=== PATIENT | female | born 1950 ===

== ENCOUNTER 2024-10-05 09:49 | Outpatient (AMB) | payer MEDICARE, MEDICAID, SELFPAY ==
[2024-10-05 09:54] VITALS: BP 118/56; PULSE 77; RESP 16; O2SAT 99; BMI 29.2
--- NOTE | 2024-10-05 09:54 | A.OFFVIS_ITS ---
Vital Signs 10/05/24 09:54 Height 5 ft 6 in Weight 181 lb BMI 29.2 BP 118/56 L Blood Pressure Location Lt brachial Position Sitting Respiration 16 Pulse 77 Pulse Source Pulse Oximeter Pulse Oximetry (%) 99 Oxygen Delivery Method Room Air Intake Visit Reasons: Neuropathy Senior Clinical Study Manager Required: No Allergies Penicillins Allergy (Severe, Verified 10/05/24 09:55) n/v, rectal bleeding Medication List - Last Reconciled 10/05/24 by Bhavana Batres LPN insulin glargine (Basaglar KwikPen U-100 Insulin) units subcut HPI HPI Neuropathy: Details: History of Present Illness The patient is a 74-year-old female presenting with foot pain due to diabetic neuropathy. The pain began in March 2024 and is described as stiffness, pins and needles, and numbness, with an intensity of 7 on a scale of 10. The pain is particularly bothersome at night, affecting her ability to sleep and engage in daily activities, although it tends to improve during the day. The patient has a history of diabetes mellitus, diagnosed one to two years prior. She is currently managing her diabetes with insulin therapy, although specific details about her glycemic control were not discussed. Pain Description - Onset: March 2024 - Quality: Stiffness, pins and needles, numbness - Intensity: 7/10 - Timing: More bothersome at night - Impact: Affects sleep and daily activities Physical Exam Neurological: Abnormal sensation upon touching toes, described as funny feeling. There's loss of hair and shiny skin appearance on her feet. Results Pain Management - Affect: Pain intensity affects sleep and daily activities, particularly at night. - Analgesia: No current analgesia aside from considering pregabalin 75 mg at night. - Adverse Effects: None reported as pregabalin not yet initiated. - Activities of Daily Living: Impacted due to nighttime pain intensity. - Aberrant Drug Related Behaviors: None reported. [facility] Medical History (Updated 10/06/24 @ 10:32 by Abisai Munroe MD) Vitamin D deficiency Varicose veins of lower extremity Type 2 diabetes mellitus with hyperglycemia Plantar fasciitis Osteoarthritis of both knees Lumbar disc disease Arthritis of right glenohumeral joint Diverticulosis Colon polyp Physical Exam Vital Signs: Last Vital Signs Pulse 77 10/05/24 09:54 Resp 16 10/05/24 09:54 BP 118/56 L 10/05/24 09:54 Pulse Ox 99 10/05/24 09:54 Oxygen Delivery Method Room Air 10/05/24 09:54 BMI result Body Mass Index 29.2 Assessment & Plan Assessment & Plan (1) Peripheral neuritis of both feet: Code(s): G57.93 - Unspecified mononeuropathy of bilateral lower limbs Category: Medical Plan Plan - Initiate pregabalin 75 mg at night for neuropathic pain management. - Perform nerve conduction study to evaluate neuropathy and exclude lumbar radiculopathy. - Continue monitoring and adapt treatment strategies based on study outcomes and symptom progression. - Follow up 1 month. Patient was informed and verbally consented to the use of an ambient scribe for clinic note documentation during this visit. Discussion Notes I discussed with the patient the potential benefits of pregabalin for alleviating her neuropathic pain and its potential to improve her sleep disturbances. We considered the nerve conduction study as an important diagnostic tool to determine the causes of her symptoms, emphasizing the need to exclude lumbar radiculopathy. I explained how this determination would guide subsequent treatment decisions and assured her that continuous assessment and adaptation of her management plan would be prioritized based on evolving diagnostic findings. Patient Instructions - Begin pregabalin 75 mg at bedtime as discussed. - Expect a nerve conduction study as planned. - Monitor symptom changes, particularly improved sleep or reduced pain, and report any adverse effects. - Follow guidance given for managing diabetes unless otherwise instructed. Orders: Orders NE electromyogram (EMG) Today G57.93 - Unspecified mononeuropathy of bilateral lower limbs NE nerve conduction velocity Today G57.93 - Unspecified mononeuropathy of bilateral lower limbs Medications: New pregabalin 75 mg PO DAILY 30 caps 0RF Coding Level of Care Code New Pt Level 4 (58963) Diagnoses Peripheral neuritis of both feet G57.93
--- OUTSIDE RECORDS SUMMARY | 2024-10-05 10:24 | XMS_ITS | Clinical Summary ---
Author Organization [facility] Address [address] [place] [address] Phone Care Team Providers Care Director Geophysical Laboratory Name Role Phone Boni Castaneda MD Primary Care Provider [phone] Allergies Active Allergy Reactions Criticality Noted Date Comments Penicillin G Anaphylaxis,Nausea And Vomiting High Medications FREESTYLE LANCETS MISC 1 Device by Does not apply route 2 times daily. Use to test blood sugars twice daily DX: E11.65 07/22/19 24 Active pen needle, diabetic (BD Ultra-Fine Short Pen Needle) 31 gauge x 5/16 needle Use with insulin pen once daily 07/22/19 24 Active lidocaine (LIDODERM) 5 % patchIndications:D iabetic mononeuropathy simplex ([facility] V24, [facility] V28) Apply 2 patches topically 1 (one) time each day. Remove & discard patch within 12 hours or as directed by MD. 30 each 5 07/20/19 25 025 Active blood sugar diagnostic (FreeStyle Lite Strips) test strip USE TO TEST BLOOD SUGARS TWICE DAILY DX: E11.65 100 strip 5 09/06/19 25 Active pravastatin (PRAVACHOL) 10 mg tablet TAKE 1 TABLET BY MOUTH EVERY DAY 90 tablet 1 09/09/19 25 Active alcohol swabs (Alcohol Prep Pads) pads, medicated 1 Each by Does not apply route three times daily. 300 each 3 09/21/19 25 Active blood-glucose meter kit Use to test blood sugars twice daily. 1 each 09/21/19 25 Active insulin glargine,hum.rec.a nlog (Basaglar KwikPen U-100 Insulin) 100 unit/mL (3 mL) injection pen INJECT 36 UNITS INTO SKIN AT BEDTIME, INCR 2 UNITS EVERY 3 DAYS IF FASTING SUGARS >130 MAX 60 UNITS 15 mL 12 09/21/19 25 Active alcohol antiseptic pads (ALCOHOL PREP PADS TOP) 1 Each by Does not apply route daily. 07/22/19 24 025 Discontin ued(Reord er) blood-glucose meter kit Use to test blood sugars twice dialy DX: E11.65 02/08/20 21 025 Discontin ued(Reord er) insulin glargine,hum.rec.a nlog (Basaglar KwikPen U-100 Insulin) 100 unit/mL (3 mL) injection pen INJECT 26 UNITS INTO SKIN AT BEDTIME, INCR 2 UNITS EVERY 3 DAYS IF FASTING SUGARS >130 MAX 30 UNITS 15 mL 12 08/27/19 25 025 Discontin ued(Reord er) Active Problems Problem Noted Date Diagnosed Date Vitamin D deficiency 05/21/2023 Colon polyp 04/08/2021 Diverticulosis 04/08/2021 Overview (12/11/2023): Mild per 2019 colonoscopy report. Glenohumeral arthritis, right 04/08/2021 Lumbar disc disease 04/08/2021 Osteoarthritis of both knees 03/25/2021 Overview (12/11/2023): Chronic left knee pain. Plantar fasciitis 03/25/2021 Varicose veins of lower extremity 03/25/2021 Type 2 diabetes mellitus wit h hyperglycemia, without long-term current use of insulin ([facility] V24, [facility] V28) 02/05/2021 Encounters Date Type Department Care Team Description 09/28/2024 Telephone Internal Medicine - [facility] [address] [place], [place] [address], [place] [phone] Boni Castaneda MD 09/28/2024 Telephone Internal Medicine - [facility] [address] [place], [place] [phone] Boni Castaneda MD Referral (INTERNAL REFERRAL ) 09/20/2024 9:00 AM EDT Office Visit Endocrinology [address] [phone] Rachel Whitney PA Type 2 diabetes mellitus with hyperglycemia, without long-term current use of insulin ([facility] V24, [facility] V28) (Primary Dx) 08/26/2024 Telephone Endocrinology [address] [phone] Michelle Lowry PA Medication Problem 08/05/2024 9:00 AM EDT - 08/05/2024 11:59 PM EDT [facility] [address] [phone] Breast asymmetry Discharge Disposition: Home or Self Care 07/20/2024 9:00 AM EDT Office Visit Internal Medicine - [address] [phone] Boni Castaneda MD Encounter for annual physical exam (Primary Dx); Type 2 diabetes mellitus with hyperglycemia, without long-term current use of insulin ([facility] V24, [facility] V28); Encounter for osteoporosis screening in asymptomatic postmenopausal patient 07/19/2024 10:00 AM EDT Office Visit Orthopedic Surgery - [place] [address] [place] [phone] Darion Jimenez DPM Diabetic mononeuropathy simplex ([facility] V24, [facility] V28) (Primary Dx); Dermatophytosis of nail; Pain in toe of right foot; Pain in toe of left foot; Primary osteoarthritis of both feet from Last 3 Months Immunizations Name Administration Dates Next Due Pfizer SARS-CoV-2 COVID-19, mRNA, LNP-S, preservative free 06/10/2021 Surgical History Surgery Date Site/Laterality Comments OTHER SURGICAL HISTORY 03/06/2020 PROCEDURE: IN TOTAL ABDOMINAL HYSTERECT W/WO RMVL TUBE OVARY TUBAL LIGATION PROCEDURE: HISTORICAL TUBAL LIGATION CHOLECYSTECTOMY 06/11/2016 PROCEDURE: HISTORICAL CHOLECYSTECTOMY; COMMENT: lap juanita COLONOSCOPY 2019 PROCEDURE: HISTORICAL COLONOSCOPY; COMMENT: polyp, mild diverticulosis, repeat in 2023. Medical History Medical History Date Comments Type 2 diabetes mellitus wit h hyperglycemia, without long-term current use of insulin ([facility] V24, [facility] V28) 02/05/2021 DX:Type 2 diabetes mellitus with hyperglycemia, without long-term current use of insulin ([facility]) Osteoarthritis of both knees 03/25/2021 DX: Osteoarthritis of both knees; COMMENT: Chronic left knee pain. Plantar fasciitis 03/25/2021 DX:Plantar fas ciitis Varicose veins of lower extremity 03/25/2021 DX:Varicose veins of lower extremity Colon polyp 04/08/2021 DX:Colon polyp Diverticulosis 04/08/2021 DX:Diverticulosi s; COMMENT: Mild per 2019 colonoscopy report. Glenohumeral arthritis, right 04/08/2021 DX :Glenohumeral arthritis, right Lumbar disc disease 04/08/2021 DX:Lumbar di sc disease History of endometrial cancer 04/08/2021 DX :History of endometrial cancer; COMMENT: s/p hyst Family History Medical History Relation Name Comments Diabetes Brother 1 No Known Problems Daughter 1 No Known Problems Daughter 2 No Known Problems Father Lung cancer Maternal Grandmother Breast cancer Mother Diabetes Diabetes Mother No Known Problems Sister 1 Diabetes Sister 2 Relation Name Status Comments Brother 1 Brother 2 Daughter 1 Daughter 2 Alive Father Maternal Grandmother Mother Sister 1 Sister 2 Alive Social History Tobacco Use Types Packs/Day Years Used Date Smoking Tobacco: Never Smokeless Tobacco: Never Tobacco Cessation:Counseling Given: Not Answered Alcohol Use Standard Drinks/Week Comments Never 0 (1 standard drink = 0.6 oz pur e alcohol) Comments No Sex and Gender Information Value Date Recorded Sex Assigned at Not on file Legal Sex Female 8:37 PM EST Gender Identity Not on file Sexual Orientation Not on file Obstetrics History Para Term AB IAB SAB Ectopic Multiple Livin g Live Births 2 Last Filed Vital Signs Vital Sign Reading Time Taken Comments Blood Pressure 122/72 09/20/2024 9:16 AM EDT C Pulse 65 09/20/2024 9:16 AM EDT Temperature 36.1 C (96.9 F) 09/20/2024 9:16 AM EDT Respiratory Rate - - Oxygen Saturation - - Inhaled Oxygen Concentration - - Weight 83.3 kg (183 lb 9.6 oz) 09/20/2024 9:16 A M EDT Height 167.6 cm (5' 6 ) 09/20/2024 9:16 AM EDT Body Mass Index 29.63 09/20/2024 9:16 AM EDT Plan of Treatment Upcoming Encounters Date Type Department Care Team (Late st Contact Info) Description 10/05/2024 3:45 PM EDT Office Visit Internal Medicine - [facility] [address] [place] [phone] Faith Means, CHRIS [address] [place] [address] 10/18/2024 9:15 AM EDT Office Visit Orthopedic Surgery - [place] [address] [phone] Darion Jimenez DPM [address] [address] 11/02/2024 9:00 AM EDT Office Visit Endocrinology - [address] [phone] Rachel Whitney PA [address] [place] [address] 02/10/2025 10:00 AM EST Appointment [facility] [address] [place] [phone] Health Maintenance Due Date Last Done Comments Medicare Annual Wellness Visit 02/22/2022 Osteoporosis Screening (Bone Density Screening) 02/22/2022 Depression Screening 03/23/2024 Diabetes: Annual Retina Eye Exam 09/14/2024 09/15/2023 Influenza Vaccine (#1) 2024 Diabetes: Blood Sugar Control Test (HGBA1C) 03/02/2025 08/31/2024, 03/07/2024, 08/26/2023, Additional history exists Diabetes: Annual Foot Exam 07/19/2025 07/19/2024 Falls Risk Assessment 07/20/2025 07/20/2024, 024 Social Influencers of Health Screening 07/20/2025 07/20/2024 Diabetes: Annual Urine Albumin-Creatinine Ratio (uACR) 08/31/2025 08/31/2024, 11/05/2022 Diabetes: Annual GFR (Glomerular Filtration Rate) 08/31/2025 08/31/2024, 03/07/2024, 11/05/2022 Breast Cancer Screening 08/05/2026 08/06/19, 01/20/2024, 01/14/2023, Additional history exists Cholesterol Screening (Lipid Panel) 03/07/2029 03/07/2024, 11/05/2022 Colorectal Cancer Screening: Colonoscopy 06/08/2031 06/07/2021 Hepatitis C Screening Completed 02/05/2021 COVID-19 Vaccine Discontinued 06/10/2021 DTaP,Tdap,and Td Vaccines Discontinued HIB Vaccines Aged Out No longer eligi ble based on patient's age to complete this topic HPV Vaccines Aged Out No longer eligi ble based on patient's age to complete this topic Hepatitis A Vaccines Aged Out No long er eligible based on patient's age to complete this topic Hepatitis B Vaccines Aged Out No long er eligible based on patient's age to complete this topic IPV Vaccines Aged Out No longer eligi ble based on patient's age to complete this topic MMR Vaccines Aged Out No longer eligi ble based on patient's age to complete this topic Meningococcal ACWY Vaccine Aged Out N o longer eligible based on patient's age to complete this topic Meningococcal B Vaccine Aged Out No l onger eligible based on patient's age to complete this topic Pneumococcal Vaccine: 50+ Years Discontinued RSV Immunization Adult Patients Discontinued RSV Immunization Patients Under 20 months Aged Out No longer eligible based on patient's age to complete this topic Varicella Vaccines Aged Out No longer eligible based on patient's age to complete this topic Zoster Vaccines Discontinued Procedures Procedure Name Priority Date/Time Associated Diagnosis Comments POC GLUCOSE Routine 09/20/2024 9:13 AM EDT Type 2 diabetes mellitus with hyperglycemia, without long-term current use of insulin ([facility] V24, [facility] V28) HEMOGLOBIN A1C Routine 08/31/2024 9:20 AM EDT Type 2 diabetes mellitus with hyperglycemia, without long-term current use of insulin ([facility] V24, [facility] V28) MICROALBUMIN CREATININE URINE RATIO Routine 08/31/2024 9:20 AM EDT Type 2 diabetes mellitus with hyperglycemia, without long-term current use of insulin ([facility] V24, [facility] V28) COMPREHENSIVE METABOLIC PANEL Routine 08/31/2024 9:20 AM EDT Type 2 diabetes mellitus with hyperglycemia, without long-term current use of insulin ([facility] V24, [facility] V28) MG MAMMO DIGITAL DIAGNOSTIC W RODRIGO RIGHT Routine 08/05/2024 9:38 AM EDT Breast asymmetry LIPID PANEL WITH REFLEX TO DIRECT LDL Routine 03/07/2024 11:00 AM EST Mixed hyperlipidemia DIABETES EYE EXAM Routine 09/15/2023 FALLS RISK ASSESSMENT Routine 07/22/2023 COLONOSCOPY Routine 06/07/2021 HEPATITIS C SCREENING Routine 02/05/2021 from Last 3 Months or Most Recently Relevant to Health Maintenance Results * POC glucose manually resulted (09/20/2024 9:13 AM EDT) Glucose POC 335 mg/dL Comment:Fasting Blood Capillary blood specimen / Unknown 09/20/2024 9:13 AM EDT us Rachel FLORES POINT OF CARE TEST ENTER/ED IT ORDERABLES Final Result * Microalbumin creatinine urine ratio (08/31/2024 9:20 AM EDT) Creatinine, Urine 96.0 mg/dL LAB CHEMISTRY METHOD 08/31/2024 3:26 PM EDT [facility] Microalb, Ur 13.8 0.0 - 29.0 mg/L LAB CHEMISTRY METHOD 08/31/2024 3:26 PM EDT [facility] Microalb/Creat Ratio 14 <30 mg/g creat LAB CHEMISTRY METHOD 08/31/2024 3:26 PM EDT [facility] Urine Urine specimen obtained by clean catch procedure / Unknown Non-blood Collection / Unknown 08/31/2024 9:20 AM EDT 08/31/2024 9:20 AM EDT us Michelle FLORES LAB URINE ORDERABLES Final Resul t Performing Organization Address [facility]/ZIP Co de Phone Number [facility] [address] [place] [address], [place] [phone] * (ABNORMAL) Hemoglobin A1c (08/31/2024 9:20 AM EDT) Hemoglobin A1C 12.9(H) <6.5 % LAB CHEMISTRY METHOD 08/31/2024 8:49 PM EDT [facility] Mean Bld Glu Estim. 324 mg/dL LAB CHEMISTRY METHOD 08/31/2024 8:49 PM EDT [facility] Blood Venous blood specimen / Unknown Venipuncture / Unknown 08/31/2024 9:20 AM EDT 08/31/2024 9:20 AM EDT us Michelle FLORES LAB BLOOD ORDERABLES Final Resul t [facility] [address] [place] [address], [place] [phone] * (ABNORMAL) Comprehensive metabolic panel (08/31/2024 9:20 AM EDT) Sodium 137 133 - 145 mmol/L LAB CHEMISTRY METHOD 08/31/2024 1:59 PM EDT [facility] Potassium 4.1 3.5 - 5.5 mmol/L LAB CHEMISTRY METHOD 08/31/2024 1:59 PM [facility] Chloride 103 96 - 110 mmol/L LAB CHEMISTRY METHOD 08/31/2024 1:59 PM [facility] CO2 30 21 - 32 mmol/L LAB CHEMISTRY METHOD 08/31/2024 1:59 PM [facility] Anion Gap 4 3 - 11 LAB CHEMISTRY METHOD 08/31/2024 1:59 PM [facility] Glucose 328(H) 70 - 100 mg/dL LAB CHEMISTRY METHOD 08/31/2024 1:59 PM [facility] BUN 7 5 - 25 mg/dL LAB CHEMISTRY METHOD 08/31/2024 1:59 PM [facility] Creatinine 0.52 0.50 - 1.10 mg/dL LAB CHEMISTRY METHOD 08/31/2024 1:59 PM [facility] eGFR 99 >=60 mL/min/1. 73m2 LAB CHEMISTRY METHOD 08/31/2024 1:59 PM [facility] Comment:Calculation based on the Chronic Kidney Disease Epidemiology Collaboration (CKD-EPI) equation refit without adjustment for race. BUN/Creatinine Ratio 13.5 LAB CHEMISTRY METHOD 08/31/2024 1:59 PM [facility] Calcium 9.8 8.5 - 10.5 mg/dL LAB CHEMISTRY METHOD 08/31/2024 1:59 PM [facility] AST (SGOT) 11 10 - 42 unit/L LAB CHEMISTRY METHOD 08/31/2024 1:59 PM [facility] ALT (SGPT) 21 10 - 60 unit/L LAB CHEMISTRY METHOD 08/31/2024 1:59 PM [facility] Alkaline Phosphatase 202(H) 42 - 121 unit/L LAB CHEMISTRY METHOD 08/31/2024 1:59 PM [facility] Total Protein 6.5 6.0 - 8.0 g/dL LAB CHEMISTRY METHOD 08/31/2024 1:59 PM EDT [facility] Albumin 3.6 3.2 - 5.0 g/dL LAB CHEMISTRY METHOD 08/31/2024 1:59 PM EDT [facility] Total Bilirubin 0.6 0.0 - 1.4 mg/dL LAB CHEMISTRY METHOD 08/31/2024 1:59 PM EDT [facility] Blood Venous blood specimen / Unknown Venipuncture / Unknown 08/31/2024 9:20 AM EDT 08/31/2024 9:20 AM EDT Boni Castaneda MD LAB BLOOD ORDERABLES Final Resu lt [facility] [address] [place] [address], [place] [phone] * MG Mammo Digital Diagnostic w Rodrigo Right (08/05/2024 9:38 AM EDT) Anatomical Region Laterality Modality Breast Right Mammography 08/05/2024 9:21 AM EDT Impressions 08/05/2024 9:33 AM EDT Decrease in size and macrolobulated mass at the 12 to 1:00 position of the right breast. This is therefore favored to be benign. Bilateral mammography in 6 months, which will serve as additional short-term follow-up of the right breast and annual mammography of the left breast, is recommended. BI-RADS CATEGORY: 3 - PROBABLY BENIGN RECOMMENDATION: Short Interval Follow-up is recommended for bilateral breasts in 6 months. Mammo Location: [facility], [address] [place] [id number] -------- FINAL REPORT -------- Dictated By: Lefty Oliva Dictated Date: 08/05/2024 09:21 ET Assigned Physician: Lefty Oliva Reviewed and Electronically Signed By: Lefty Oliva Signed Date: 08/05/2024 09:33 ET Workstation ID: [id number] Transcribed By: Self Edit Transcribed Date: 08/05/2024 09:25 ET Narrative 08/05/2024 9:33 AM EDT CLINICAL: The patient is a 74 years Female screening mammography performed 01/20/2024 demonstrated a 3.8 cm isodense oval mass in the middle 12 to 1:00 position of the right breast, 5 to 6 cm from the nipple. Ultrasound examination performed 02/02/2024 demonstrated a corresponding area of asymmetry, less well-seen than on the mammogram. Follow-up is now performed. COMPARISON: Most recently 01/20/2024 and most remotely 02/28/2021. TECHNIQUE: Full-field digital mammography of the right breast consisting of tomosynthesis in MLO and CC projection is performed in the [employer] 2000-D unit. Computer aided detection utilizing the Stroodle system was utilized. FINDINGS: The right breast is seen to be composed of a combination of fatty and fibroglandular elements. Again seen is a macrolobulated mass at the 12 to 1:00 position of the right breast, approximately 5 to 6 cm from the nipple. This currently measures 3.0 x 1.1 cm, decreased from 3.8 x 1.7 cm on 01/20/2024. This is seen to best advantage on thin slice MLO tomographic image 41/59 and on thin slice CC tomographic image 40/52. No other mass is seen and there is no cluster of microcalcifications, skin thickening, or nipple retraction. TISSUE DENSITY: There are scattered areas of fibroglandular density. (BI-RADS category B) Procedure Note Lefty Oliva MD - 08/05/2024 CLINICAL: The patient is a 74 years Female screening mammography /30/2024 demonstrated a 3.8 cm isodense oval mass in the middle 12 to1:00 position of the right breast, 5 to 6 cm from the nipple. Ultrasoundexamination performed 02/02/2024 demonstrated a corresponding area ofasymmetry, less well-seen than on the mammogram. Follow-up is nowperformed. COMPARISON: Most recently 01/20/2024 and most remotely 02/28/2021. TECHNIQUE: Full-field digital mammography of the right breast consistingof tomosynthesis in MLO and CC projection is performed in the [employer] 2000-D unit. Computer aided detection utilizing the [employer]ystem was utilized. FINDINGS: The right breast is seen to be composed of a combination offatty and fibroglandular elements. Again seen is a macrolobulated mass atthe 12 to 1:00 position of the right breast, approximately 5 to 6 cm fromthe nipple. This currently measures 3.0 x 1.1 cm, decreased from 3.8 x1.7 cm on 01/20/2024. This is seen to best advantage on thin slice MLOtomographic image 41/59 and on thin slice CC tomographic image 40/52. Noother mass is seen and there is no cluster of microcalcifications, skinthickening, or nipple retraction. TISSUE DENSITY: There are scattered areas of fibroglandular density.(BI-RADS category B) IMPRESSION: Decrease in size and macrolobulated mass at the 12 to 1:00 position of theright breast. This is therefore favored to be benign. Bilateralmammography in 6 months, which will serve as additional bpdwa-hknaoalkyw-aw of the right breast and annual mammography of the left breast,is recommended. BI-RADS CATEGORY: 3 - PROBABLY BENIGN RECOMMENDATION: Short Interval Follow-up is recommended for bilateral breasts in 6 months. Mammo Location: [facility], [address] [place] [id number] -------- FINAL REPORT -------- Dictated By: Lefty Oliva Dictated Date: 08/05/2024 09:21 ET Assigned Physician: Lefty Oliva Reviewed and Electronically Signed By: Lefty Oliva Signed Date: 08/05/2024 09:33 ET Workstation ID: [id number] Transcribed By: Self Edit Transcribed Date: 08/05/2024 09:25 ET us Boni Castaneda MD [facility] BI PROCEDURES Final Result * (ABNORMAL) Lipid panel with reflex to direct LDL (03/07/2024 11:00 AM EST) Cholesterol 170 0 - 200 mg/dL LAB CHEMISTRY METHOD 03/07/2024 5:42 PM EST [facility] Triglycerides 49 0 - 150 mg/dL LAB CHEMISTRY METHOD 03/07/2024 5:42 PM EST [facility] HDL 58 >=40 mg/dL LAB CHEMISTRY METHOD 03/07/2024 5:42 PM [facility] LDL Calculated 102(H) 0 - 100 mg/dL LAB CHEMISTRY METHOD 03/07/2024 5:42 PM EST [facility] VLDL Cholesterol Vance 9.8 mg/dL LAB CHEMISTRY METHOD 03/07/2024 5:42 PM EST [facility] Non HDL Chol. (LDL+VLDL) 112 <145 mg/dL LAB CHEMISTRY METHOD 03/07/2024 5:42 PM [facility] Chol/HDL Ratio 2.9 0.0 - 4.4 LAB CHEMISTRY METHOD 03/07/2024 5:42 PM [facility] Blood Venous blood specimen / Unknown Venipuncture / Unknown 03/07/2024 11:00 AM EST 03/07/2024 11:00 AM EST Anh Rivera [employer] LAB BLOOD ORDERABLES Final Resul t [facility] [address] [place] [address], * Diabetes Eye Exam (09/15/2023) [facility] Diabetes: Annual Retina Eye Exam Abstracted Historical Provider HEALTH MAINTENANCE Final Result * Falls Risk Assessment (07/22/2023) [facility] Falls Risk Assessment Abstracted Historical Provider HEALTH MAINTENANCE Final Result * Colonoscopy (06/07/2021) [facility] Colonoscopy normal Anatomical Region Laterality Modality Other Historical Provider HEALTH MAINTENANCE Final Result * Hepatitis C Screening (02/05/2021) [facility] Hepatitis C Screening negative us Historical Provider HEALTH MAINTENANCE Final Result from Last 3 Months or Most Recently Relevant to Health Maintenance Insurance MEDICAID - [place] MEDICARE Care Teams Director Geophysical Laboratory Relationship Specialty Start Date End Date Boni Castaneda MD [address] [place] [id number] PCP - General Internal Medicine 02/02/21
== END 2024-10-05 10:39 | disposition home or self-care (01) ==
LOC: HO.PMC 09:50
PROVIDERS: PCP Internal Medicine; Visit Provider Internal Medicine
DX: E11.40 Type 2 diabetes mellitus with diabetic neuropathy, unspecified (principal); G57.93 Unspecified mononeuropathy of bilateral lower limbs
CPT/HCPCS: 99204

== ENCOUNTER → 2024-10-05 09:49 | Outpatient (BNVA) | payer MEDICARE, MEDICAID, SELFPAY | PROVIDERS: PCP Internal Medicine; Visit Provider Internal Medicine | DX: E11.42 Type 2 diabetes mellitus with diabetic polyneuropathy (principal); Z79.4 Long term (current) use of insulin; Z79.899 Other long term (current) drug therapy | CPT/HCPCS: 99202 ==

== ENCOUNTER 2025-02-15 09:16 | Outpatient (REF) | payer MEDICARE, MEDICAID, SELFPAY ==
--- NOTE | 2025-02-15 09:21 | EMG_ITS ---
Chief complaint: Paresthesias in both feet especially when lying down in bed, history of diabetes, denies back pain Reason for referral: Evaluate for neuropathy Referred by: Dr. Munroe Procedure done: Bilateral lower extremity NCS/EMG Precautions and/or limitations: None The limb temperature was monitored continuously and remained between 32-36 degrees C during the performance of the NCS. Nerve Conduction Studies Anti Sensory Summary Table ?Stim Site NR Onset (ms) Norm Onset (ms) Peak (ms) Norm Peak (ms) O-P Amp (?V) Norm O-P Amp Site1 Site2 Delta-0 (ms) Dist (cm) Zachariah (m/s) Norm Zachariah (m/s) Left Sural Anti Sensory (Lat Mall) Calf NR <4.0 >5.0 Calf Lat Mall 14.0 Right Sural Anti Sensory (Lat Mall) Calf NR <4.0 >5.0 Calf Lat Mall 14.0 Motor Summary Table ?Stim Site NR Onset (ms) Norm Onset (ms) O-P Amp (mV) Norm O-P Amp iAmp (mV) Amp (1st) (%) Site1 Site2 Delta-0 (ms) Dist (cm) Zachariah (m/s) Norm Zachariah (m/s) Right Peroneal Motor (Ext Dig Brev) Ankle ? 4.1 <4.0 2.6 >2.5 3.2 100.0 Ankle Ext Dig Brev 4.1 0.0 B Fib ? 13.1 2.1 2.5 80.8 B Fib Ankle 9.0 30.5 34 >40 Poplt ? 13.7 2.2 2.6 84.6 Poplt B Fib 0.6 5.0 83 >40 Left Tibial Motor (Abd Travis Brev) Ankle NR <5 >2.5 Ankle Abd Travis Brev 0.0 Knee ? 15.3 0.8 1.0 Knee Ankle 0.0 >40 Right Tibial Motor (Abd Travis Brev) Ankle NR <5 >2.5 Ankle Abd Travis Brev 0.0 Knee NR Knee Ankle 0.0 >40 EMG ?Side Muscle Nerve Root Ins Act Fibs Psw Amp Dur Poly Recrt Int Pat Comment Right AbdHallucis MedPlantar S1-2 Nml Nml Nml Nml Nml 0 Nml Complete Right AntTibialis Dp Br Peron L4-5 Nml Nml Nml Nml Nml 0 Nml Complete Right PostTibialis Tibial L5, S1 Nml Nml Nml Nml Nml 0 Nml Complete Right MedGastroc Tibial S1-2 Nml Nml Nml Nml Nml 0 Nml Complete Right VastusMed Femoral L2-4 Nml Nml Nml Nml Nml 0 Nml Complete Left AbdHallucis MedPlantar S1-2 Nml Nml Nml Nml Nml 0 Nml Complete Left AntTibialis Dp Br Peron L4-5 Nml Nml Nml Nml Nml 0 Nml Complete Left PostTibialis Tibial L5, S1 Nml Nml Nml Nml Nml 0 Nml Complete Left MedGastroc Tibial S1-2 Nml Nml Nml Nml Nml 0 Nml Complete Left VastusMed Femoral L2-4 Nml Nml Nml Nml Nml 0 Nml Complete FINDINGS: Right peroneal nerve showed prolonged distal latency, normal amplitude and slow distal conduction velocity. No conduction block across fibular neck. Bilateral tibial nerves showed absent response. Bilateral sural nerves showed absent response. Concentric needle EMG was performed in selected muscles of the bilateral lower extremity. Study did not reveal signs of electric abnormalities as shown in the table above. IMPRESSION: 1. This is an abnormal study. 2. 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 3. There is no electrodiagnostic evidence for lumbosacral plexopathy or lumbar radiculopathy. Thank you for your kind referral. Nadia Aaron MD, MOODY Board Certified, [place] Board [employer] Medicine and Rehabilitation (ABPMR) Board Certified, [place] Board of Electrodiagnostic Medicine (ABEM) CODIN 12421 x 2 extremity MTDD
--- OUTSIDE RECORDS SUMMARY | 2025-02-15 10:16 | XMS_ITS | Continuity of Care Document ---
Author Organization [place] - [facility], [facility] Address [address] [place] [address] Care Team Providers Care Hog Cutter Name Role Phone MAYUR DONOHUE Referring Provider Assessment No assessment recorded. Plan of Treatment Reminders Order Date Submit Date Provider Last Modified By Organization Details Last Modified Time Details Appointments Hearing Test 2025 10:00A M Hearing Test Not available Not available Not available Establish ed 15 2025 10:30A M ALPHONSO AVALOS PA-C Not available Not available Not available Lab None recorded. Referral None recorded. Procedures None recorded. Surgeries None recorded. Imaging None recorded. Medication Orders None recorded. Patient TargetsNo targets recorded. Patient InstructionsNo instructions recorded. Reason for Referral None Reported. Results Created Date Observation Date Name Description Value Unit Range Abnormal Flag Note LastModifiedBy Organization Detail LastModifiedTime 12/20/19 25 audio gram No observ ation record ed. BARCODE Not Available 2024 10:11:46 Result Notes None recorded. Problems Name Problem SNOMED Code Status Onset Date Resolution Date Notes Provider Name and Address Organization Details Recorded Time Sensorineural hearing loss of bilateral ears 363112192 Active 2024 HANG CORONADO [address], [address] [facility] 13:25:31 Problem Notes None recorded. Procedures Surgical History Date Name Laterality Status Provider Name and Address Organization Details Recorded Time 12/16/2024 Comp Audio with Tymps - 85080 & 37810 completed HANG CORONADO 100 [facility],[address], [address], [facility] - [facility] 12/16/2024 13:25:27 Imaging Results None recorded. Procedure Notes None recorded. Medical Equipment None Reported. Allergies Allergen ID Allergen Name Allergen Category Reaction Reaction Severity Criticality Documentation Date Start Date Code Code System Note Provider Name and Address Organization Details Recorded Time 411901 Product containin g penicilli n (product) medicatio n Not available Not available Not available 12/16/2024 14965 8001 SNOMED Ana biggs [place] - [facility] 14:20:48 Medications Name Sig Start Date Stop Date Status Note LastModified by Organization Details LastModified Time trazodone 50 mg tablet TAKE 1 TABLET BY MOUTH EVERYDAY AT BEDTIME active Not Available Not Available No t Available azithromyci n 250 mg tablet TAKE 2 TABLETS BY MOUTH TODAY, THEN TAKE 1 TABLET DAILY FOR 4 DAYS DIRECTED 12/13 completed Not Available Not Available Not Available ofloxacin 0.3 % eye drops INSTILL 1 DROP INTO AFFECTED EYE FOUR TIMES A DAY DIRECTED START THREE DAYS BEFORE SURGERY active Not Available Not Available No t Available fluconazole 150 mg tablet TAKE 1 TABLET BY MOUTH ONCE, REPEAT IN 72 HOURS IF SYMPTOMS PERSIST active Not Available Not Available No t Available metronidazo le 0.75 % (37.5 mg/5 gram) vaginal gel INSERT 1 APPLICATO RFUL VAGINALLY TWICE DIALY FOR 5 DAYS active Not Available Not Available No t Available alendronate 70 mg tablet PLEASE SEE ATTACHED FOR DETAILED DIRECTION S active Not Available Not Available No t Available pravastatin 10 mg tablet TAKE 1 TABLET BY MOUTH EVERY DAY active Not Available Not Available No t Available nystatin 100,000 unit/gram topical cream APPLY TO AFFECTED AREA TWICE A DAY active Not Available Not Available No t Available lidocaine 5 % topical patch APPLY 2 PATCHES TOPICALLY ONCE DAILY. REMOVE AND DISCARD PATCH WITHIN 12 HOURS OR DIRECTED BY MD active Not Available Not Available No t Available gabapentin 100 mg capsule TAKE 1 CAPSULE BY MOUTH AT BEDTIME NEEDED (NEUROPAT HY). active Not Available Not Available No t Available ergocalcife rol (vitamin D2) 1,250 mcg (50,000 unit) capsule TAKE 1 CAPSULE BY MOUTH ONE TIME PER WEEK active Not Available Not Available No t Available ondansetron 4 mg disintegrat ing tablet DISSOLVE 1 TABLET ON TOP OF TONGUE EVERY 8 HOURS NEEDED FOR NAUSEA AND VOMITING FOR UP TO 7 DAYS active Not Available Not Available No t Available dicyclomine 10 mg capsule TAKE 1 CAPSULE BY MOUTH 4 TIMES A DAY (BEFORE MEALS AND NIGHTLY). active Not Available Not Available No t Available mirtazapine 7.5 mg tablet TAKE 1 TABLET BY MOUTH AT BEDTIME active Not Available Not Available No t Available pregabalin 75 mg capsule TAKE 1 CAPSULE BY MOUTH EVERYDAY AT BEDTIME active Not Available Not Available No t Available BD Ultra-Fine Short Pen Needle 31 gauge x 5/16 USE WITH INSULIN PEN ONCE DAILY active Not Available Not Available No t Available FreeStyle Lite Strips USE TO TEST BLOOD SUGARS TWICE DAILY DX: E11.65 active Not Available Not Available No t Available diflupredna te 0.05 % eye drops INSTILL 1 DROP INTO AFFECTED EYE THREE TIMES A DAY *USE AFTER SURGERY AND TAPER DIRECTED active Not Available Not Available No t Available Prolensa 0.07 % eye drops INSTILL 1 DROP INTO AFFECTED EYE ONCE A DAY DIRECTED START 3 DAYS BEFORE SURGERY active Not Available Not Available No t Available Tresiba FlexTouch U-100 insulin 100 unit/mL (3 mL) subcutaneou s pen INJECT 30 UNITS NIGHTLY active Not Available Not Available No t Available Basaglar KwikPen U-100 Insulin 100 unit/mL (3 mL) subcutaneou s INJECT 36 UNITS INTO SKIN AT BEDTIME, INCR 2 UNITS EVERY 3 DAYS IF FASTING SUGARS >130 MAX 60 UNITS active Not Available Not Available No t Available Vitals Date Recorded Body height Body mass index (BMI) Body weight Provider Name and Address Organization Details Last Updated DateTime 12/16/2024 162.56 cm 30.9 kg/m2 50557.63 g Ana Cortez [place] - [facility] 12/16/2024 14:20:40 Social History None recorded. Functional Status Question Answer Note LastModified by Organization D etails LastModified Time What is your level of alcohol consumption? None [email or web address] Information not available 12/16/2024 Mental Status None recorded. Family History Nothing Reported. Medical History No medical history recorded. Gynecological HistoryNo gynecological history recorded. Obstetrics History GPAL:G 0 P 0 0 0 0 Past Encounters Encounter ID Performer Location Encounter Start Date Encounter Closed Date Diagnosis/Indication Diagnosis SNOMED-CT Code Diagnosis ICD10 Code Diagnosis IMO Codes Diagnosis Note [id number] ALPHONSO AVALOS PA-C [facility] [address] [place] [address] 12/16/2024 12:21:56 12/16/2024 14:32:03 Sensorineural hearing loss of bilateral ears 732706211 H90.3 [id number] HANG CORONADO [facility] [address] [place] [address] 12/16/2024 12:26:40 12/16/2024 14:53:41 Sensorineural hearing loss of bilateral ears [id number] H90.3 [id number] Audiologic al evaluation results: Right ear: Mild sloping to a moderate sensorineu ral hearing loss with excellent word recognitio n. Left ear: Mild sloping to a moderate sensorineu ral hearing loss with excellent word recognitio n. Tympanomet ry: Right Ear:Type A Left Ear:Type A Health Concerns Section Related Observation LastModified by Organization Detai ls LastModified Time None Recorded Concern Status LastModified by Organization Details LastModified Time None Recorded Payers Encounter Date Sequence Insurance Name Policy Number Policy Fenton Covered Member ID Fenton Member ID Guarantor Name 12/16/2024 1 [place] B-[place]: [facility] Laure Mills [id number] Laure Mills 12/16/2024 2 MEDICAID-[place]: [facility] Laure Mills [id number] Laure Mills Notes Date Note Type Note Provider Name and Address Organization Details Recorded Time 12/16/2024 text/html ROS as noted in the HPI 74-year-old female presents for evaluation of hearing loss. She has been noticing progressive hearing loss particularly over the last year or so. ALPHONSO AVALOS PA-C [address] [place] [address], [address], [facility] - [facility] 12/16/2024 14:35:06 OBGyn Episode No OBEpisode recorded.
--- OUTSIDE RECORDS SUMMARY | 2025-02-15 10:16 | XMS_ITS | Continuity of Care Document ---
Author Organization [place] - [facility], [facility] Address [address] [place] [address] Care Team Providers Care Office Copy Selector Name Role Phone MAYUR DONOHUE Referring Provider [phone] Assessment Encounter Date Assessment Date Assessment LastModified by Organization Details LastModified Time 12/16/2024 12/16/2024 74-year-old female presents for evaluation of hearing loss. Otologic exam is unremarkable today. Audiometric testing was obtained showing sensorineural hearing loss bilaterally which is symmetrical. Hearing loss affects all frequencies. She would be an excellent candidate for amplification. She was provided medical clearance for bilateral hearing aids as well as [facility] Follow-up in 1 year for repeat audiogram or sooner for acute changes in hearing. All questions were answered. [email or web address] Not available 12/16/2024 14:34:46 Plan of Treatment Reminders Order Date Submit [...] Time Sensorineural hearing loss of bilateral ears 003971008 Active 2024 KATLIN ARCELIA , AUD [address], [address], [facility] 13:25:31 Problem Notes None recorded. Procedures Surgical History Date Name Laterality Status Provider Name and Address Organization Details Recorded Time 12/16/2024 Comp Audio with Tymps - 07463 & 34103 completed KATLIN ARCELIA, AUD 100 [facility],[address], [address], [facility] 12/16/2024 13:25:27 Imaging Results None recorded. Procedure Notes None recorded. Medical Equipment None Reported. Allergies Allergen ID Allergen Name Allergen Category Reaction Reaction Severity Criticality Documentation Date Start Date Code Code System Note Provider Name and Address Organization Details Recorded Time 988535 Product containin g penicilli n (product) medicatio n Not available Not available Not available 12/16/2024 91137 8001 SNOMED Ana biggs [facility] 14:20:48 Medications Name Sig Start Date Stop [...] Updated DateTime 12/16/2024 162.56 cm 30.9 kg/m2 47884.63 g Ana Cortez [place] - [facility] 12/16/2024 14:20:40 Social History None recorded. Functional [...] ICD10 Code Diagnosis IMO Codes Diagnosis Note [id number] ALPHONSO AVALOS PA-C [facility] of [address] [address] 12/16/2024 12:21:56 12/16/2024 14:32:03 Sensorineural hearing loss of bilateral ears [id number] H90.3 [id number] HANG CORONADO [facility] of [address] [address] 12/16/2024 12:26:40 12/16/2024 14:53:41 Sensorineural hearing loss of bilateral ears 567104698 H90.3 [id number] Audiologic al evaluation results: Right ear: Mild [...] Member ID Guarantor Name 12/16/2024 1 [place] [employer] Laure Mills [id number] Laure Mills 12/16/2024 2 [place] [facility] Laure Mills [id number] Laure Mills Notes Date Note Type Note Provider Name and Address Organization Details Recorded Time 12/16/2024 text/html ROS as noted in the HPI 74-year-old female presents for evaluation of hearing loss. She has been noticing progressive hearing loss particularly over the last year or so. ALPHONSO AVALOS PA-C [address] [place] [address], [place], [address], [facility] - [facility] 12/16/2024 14:35:06 OBGyn Episode No OBEpisode recorded.
--- OUTSIDE RECORDS SUMMARY | 2025-02-15 10:16 | XMS_ITS | Data Portability ---
Author Organization [place] - [facility], Allergy Address [address] [address] Care Team Providers Care Private Advisor Name Role Phone MAYUR DONOHUE Referring Provider [phone] Assessment Encounter Date Assessment Date Assessment LastModified [...] a [facility]. Follow-up in 1 year for repeat audiogram or sooner for acute changes in hearing. All questions were answered. [email or web address] Not available 12/16/2024 14:34:46 Plan of Treatment [...] Time Sensorineural hearing loss of bilateral ears 878697357 Active 2024 KATLIN PANIAGUA , HANG 100 [facility],[address], [address], [facility] 13:25:31 Problem Notes None recorded. Procedures Surgical History Date Name Laterality Status Provider Name and Address Organization Details Recorded Time 12/16/2024 Comp Audio with Tymps - 90784 & 48332 completed KATLIN PANIAGUA, HANG 100 [facility] [address], [place], [address], [facility] 12/16/2024 13:25:27 Imaging Results None recorded. Procedure Notes None recorded. Medical Equipment None Reported. Allergies Allergen ID Allergen Name Allergen Category Reaction Reaction Severity Criticality Documentation Date Start Date Code Code System Note Provider Name and Address Organization Details Recorded Time 800786 Product containin g penicilli n (product) medicatio n Not available Not available Not available 12/16/2024 46894 8001 SNOMED [facility] 14:20:48 Medications Name Sig Start Date [...] Updated DateTime 12/16/2024 162.56 cm 30.9 kg/m2 77580.63 g Ana Potvin [place] - [facility] 12/16/2024 14:20:40 Social History None recorded. [...] ICD10 Code Diagnosis IMO Codes Diagnosis Note [id number] ALPHONSO AVALOS PA-C [facility] of [address] [address] 12/16/2024 12:21:56 12/16/2024 14:32:03 Sensorineural hearing loss of bilateral ears [id number] H90.3 [id number] HANG CORONADO [facility] of [address] [address] 12/16/2024 12:26:40 12/16/2024 14:53:41 Sensorineural hearing loss of bilateral ears 363002916 H90.3 [id number] Audiologic al evaluation results: Right ear: Mild [...] by Organization Details LastModified Time None Recorded Advance Directives Directive None Recorded Payers Insurance Date Sequence Insurance Name Policy Number Policy Fenton Covered Member ID Fenton Member ID Guarantor Name 12/13/2024 1 [place] [employer] Laure Mills [id number] Laure Mills 12/13/2024 2 [place] [facility] Laure Mills [id number] Laure Mills Notes Date Note Type Note Provider Name and Address Organization Details Recorded Time 12/16/2024 text/html ROS as noted in the HPI 74-year-old female presents for evaluation of hearing loss. She has been noticing progressive hearing loss particularly over the last year or so. ALPHONSO AVALOS PA-C [address] [place] [address], [place], [address], [facility] - [facility] 12/16/2024 14:35:06 OBGyn Episode No OBEpisode recorded.
== END 2025-02-15 09:17 | disposition home or self-care (01) ==
LOC: HO.NEURO 09:16
PROVIDERS: PCP Internal Medicine; Visit Provider Internal Medicine
DX: G57.93 Unspecified mononeuropathy of bilateral lower limbs (principal)
CPT/HCPCS: 95886; 95909

== ENCOUNTER → 2025-02-15 09:21 | Outpatient (BNV) | payer MEDICARE, MEDICAID, SELFPAY | PROVIDERS: PCP Internal Medicine; Visit Provider Physical Medicine & Rehabilitation | DX: G62.89 Other specified polyneuropathies (principal) | CPT/HCPCS: 95886; 95909 ==

== ENCOUNTER 2025-03-22 09:34 | Outpatient (AMB) | payer MEDICARE, MEDICAID, SELFPAY ==
--- OUTSIDE RECORDS SUMMARY | 2025-03-21 07:48 | XMS_ITS | Encounter Summary ---
Author Organization [facility] Address [address] [place] [address] Care Team Providers Care Geodetic Technician Name Role Phone Boni Castaneda MD Primary Care Provider [phone] Reason for Referral * Imaging (Routine) - Authorized Specialty Diagnoses / Procedures Referred By Jude richter Referred To Contact Radiology Diagnoses Breast asymmetry Procedures MG Mammo Digital Diagnostic w Boni Escalante MD [address] [place] [address] Phone: tel: fax: [facility] Referral ID Status Reason Start Date Expiration Date V isits Requested Visits Authorized [id number] Authorized 08/05/2024 08/05/2025 1 1 Reason for Visit * Imaging (Routine) - Authorized Specialty Diagnoses / Procedures Referred By Jude richter Referred To Contact Radiology Diagnoses Breast asymmetry Procedures MG Mammo Digital Diagnostic w Boni Escalante MD [address] [place] [address] Phone: tel: fax: [facility] Referral ID Status Reason Start Date Expiration Date V isits Requested Visits Authorized [id number] Authorized 08/05/2024 08/05/2025 1 1 Encounter Details Date Type Department Care Team (Latest Contact Info) Description 03/21/2025 7:48 AM EST - 03/21/2025 11:59 PM EST Hospital [facility] [address] [address] Breast asymmetry Discharge Disposition: Home or Self Care Social History Tobacco Use Types Packs/Day Years Used Date Smoking Tobacco: Never Smokeless Tobacco: Never Alcohol Use Standard Drinks/Week Comments Never 0 (1 standard drink = 0.6 oz pur e alcohol) Comments No Sex and Gender Information Value Date Recorded Sex Assigned at Female 10/26/2024 11:21 AM EDT Legal Sex Female 8:37 PM EST Gender Identity Female 10/26/2024 11:21 AM EDT Sexual Orientation Not on file documented as of this encounter Medications at Time of Discharge insulin glargine,hum.rec. anlog (Basaglar KwikPen U-100 Insulin) 100 unit/mL (3 mL) injection pen INJECT 42 UNITS INTO SKIN AT BEDTIME, INCR 2 UNITS EVERY 3 DAYS IF FASTING SUGARS >130 MAX 60 UNITS 03/08/2025 alcohol swabs (Alcohol Prep Pads) pads, medicated 1 Each by Does not apply route three times daily. 300 each 3 09/20/2024 alendronate (FOSAMAX) 70 mg tablet TAKE 1 TABLET (70 MG TOTAL) BY MOUTH EVERY 7 (SEVEN) DAYS. TAKE IN THE MORNING WITH A FULL GLASS OF WATER, ON AN EMPTY STOMACH, AND DO NOT TAKE ANYTHING ELSE BY MOUTH OR LIE DOWN FOR THE NEXT 30 MIN. 12 tablet 1 12/28/2024 blood sugar diagnostic (FreeStyle Lite Strips) test strip USE TO TEST BLOOD SUGARS TWICE DAILY DX: E11.65 100 strip 5 09/05/2024 blood-glucose meter kit Use to test blood sugars twice daily. 1 each 09/20/2024 dicyclomine (BENTYL) 10 mg capsuleIndication s:Diarrhea, unspecified type Take 1 capsule (10 mg total) by mouth 4 (four) times a day (before meals and nightly). 360 each 1 12/07/2024 freestyle (FreeStyle Lancets) 28 gauge lancetsIndication s:Type 2 diabetes mellitus with hyperglycemia, without long-term current use of insulin ([facility] V24, [facility] V28) 1 Device by Does not apply route 2 times daily. Use to test blood sugars twice daily DX: E11.65 200 each 11 01/12/2025 pen needle, diabetic (BD Ultra-Fine Short Pen Needle) 31 gauge x 5/16 needle Use with insulin pen once daily 07/22/2023 pravastatin (PRAVACHOL) 10 mg tablet TAKE 1 TABLET BY MOUTH EVERY DAY 90 tablet 1 09/08/2024 pregabalin (LYRICA) 75 mg capsule Take 1 capsule (75 mg total) by mouth at bedtime. Max Daily Amount: 75 mg 11/08/2024 vitamin D3-vitamin K2 1,250-200 mcg capsule Take by mouth. documented as of this encounter Discharge Disposition Disposition Code Departure Means Destination Home or Self Care documented in this encounter Plan of Treatment Upcoming Encounters Date Type Department Care Team (Late st Contact Info) Description 05/04/2025 8:15 AM EST Appointment [facility] Nuclear Medicine [address] [place] [address] 05/08/2025 9:30 AM EST Office Visit Endocrinology - [place] [address] [place] [address] Michelle Lowry PA [address] [place] [address] 09/19/2025 9:30 AM EDT Appointment [facility] [address] [place] [address] 11/22/2025 9:40 AM EDT Office Visit Gastroenterology - 299 [facility] [address] [address] Nellie Walsh NP [address] [address] documented as of this encounter Procedures Procedure Name Priority Date/Time Associated Diagnosis Comments MG MAMMO DIGITAL DIAGNOSTIC W RODRIGO BILAT Routine 03/21/2025 9:24 AM EST Breast asymmetry documented in this encounter Results * MG Mammo Digital Diagnostic w Rodrigo bilat (03/21/2025 9:24 AM EST) Anatomical Region Laterality Modality Breast Bilateral Mammography 03/21/2025 9:08 AM EST Impressions 03/21/2025 9:24 AM EST Decreasing size of mass density in the right breast. Probably benign finding. BI-RADS: Category 3: Probably Benign RECOMMENDATION(S): Ultrasound follow-up RIGHT in 6 months. -------- FINAL REPORT -------- Dictated By: KHARI LAM Dictated Date: 03/21/2025 09:08 ET Assigned Physician: KHARI LAM Reviewed and Electronically Signed By: KHARI LAM Signed Date: 03/21/2025 09:24 ET Workstation ID: [id number] Transcribed By: Self Edit Transcribed Date: 03/21/2025 09:08 ET Narrative 03/21/2025 9:24 AM EST EXAM: MAMMO DIGITAL DIAGNOSTIC W RODRIGO BILAT EXAM DATE AND TIME: 03/21/2025 8:00 AM CLINICAL: 74 years old, Female, follow-up of asymmetry in the right breast. COMPARISON: 08/06/2019 through 02/28/2021 FINDINGS: MAMMOGRAPHY TECHNIQUE: Bilateral MLO and CC views were obtained digitally with 3-D mammogram (digital breast tomosynthesis). Computer-aided detection was utilized in evaluation of this exam (CAD). The mass density seen on the patient's previous exam remains stable. It is seen at approximately the 12 to 1 o'clock position. It is slightly smaller than the patient's previous examination measuring 3.6 x 1.4 cm on the CC image. Previously it measured 3.8 x 1.7 cm. This is probably benign and continued follow-up is recommended. The left breast is mammographically unremarkable. No developing mass or secondary signs of malignancy are seen bilaterally. BREAST DENSITY: B - There are scattered areas of fibroglandular density. Procedure Note Khari Lam MD - 03/21/2025 EXAM: MAMMO DIGITAL DIAGNOSTIC W RODRIGO BILAT EXAM DATE AND TIME: 03/21/2025 8:00 AM CLINICAL: 74 years old, Female, follow-up of asymmetry in the rightbreast. COMPARISON: 08/06/2019 through 02/28/2021 FINDINGS: MAMMOGRAPHY TECHNIQUE: Bilateral MLO and CC views were obtained digitally with 3-Dmammogram (digital breast tomosynthesis). Computer-aided detection wasutilized in evaluation of this exam (CAD). The mass density seen on the patient's previous exam remains stable. Itis seen at approximately the 12 to 1 o'clock position. It is slightlysmaller than the patient's previous examination measuring 3.6 x 1.4 cm onthe CC image. Previously it measured 3.8 x 1.7 cm. This is probablybenign and continued follow-up is recommended. The left breast is mammographically unremarkable. No developing mass orsecondary signs of malignancy are seen bilaterally. BREAST DENSITY: B - There are scattered areas of fibroglandular density. IMPRESSION: Decreasing size of mass density in the right breast. Probably benignfinding. BI-RADS: Category 3: Probably Benign RECOMMENDATION(S): Ultrasound follow-up RIGHT in 6 months. -------- FINAL REPORT -------- Dictated By: KHARI LAM Dictated Date: 03/21/2025 09:08 ET Assigned Physician: KHARI LAM Reviewed and Electronically Signed By: KHARI LAM Signed Date: 03/21/2025 09:24 ET Workstation ID: [id number] Transcribed By: Self Edit Transcribed Date: 03/21/2025 09:08 ET Boni Castaneda MD IMG BI PROCEDURES Final Result documented in this encounter Visit Diagnoses Diagnosis Breast asymmetry documented in this encounter Additional Health Concerns Infection Onset Date Last Indicated Resolved Time Enteropathogenic E. coli (EPEC) 10/06/2024 5 documented as of this encounter Care Teams Geodetic Technician Relationship Specialty Start Date End Date Boni Castaneda MD [address] [place] [address] PCP - General Internal Medicine 03/06/25 documented as of this encounter
--- NOTE | 2025-03-22 09:39 | MHC.OFFVIS ---
Vital Signs 03/22/25 09:41 Height 5 ft 6 in Weight 179 lb BMI 28.9 BP 145/65 H Blood Pressure Location Lt brachial Position Sitting Respiration 16 Pulse 76 Pulse Source Pulse Oximeter Pulse Oximetry (%) 97 Oxygen Delivery Method Room Air Intake Visit Reasons: EMG FOLLOW UP Senior Web Services Developer Required: No Allergies Penicillins Allergy (Severe, Verified 03/22/25 09:41) n/v, rectal bleeding Medication List - Last Reconciled 03/22/25 by Bhavana Batres LPN insulin glargine (Basaglar KwikPen U-100 Insulin) units subcut pregabalin 75mg QHS HPI HPI EMG FOLLOW UP: Details: History of Present Illness The patient is a 74 year old female presenting for follow-up after an abnormal nerve conduction study. 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 This neuropathy is believed to be likely related to diabetes. The patient reports ongoing symptoms of tingling and burning in her feet, which she distinguishes from pain. She was previously prescribed pregabalin (Lyrica) to be taken at night for these symptoms, and while she took it, she is unsure of the duration and has completed the 30-pill prescription. She also reports soreness on the side of her thigh. Pain Description - Quality: The patient describes her foot symptoms as tingling and burning, specifying that it is not pain. - Location: Symptoms are located in her feet. - Additional pain: She reports soreness on the side of her thigh. Physical Exam - Appears afebrile. - Alert and oriented. - Mood and affect appropriate. - Follows and participates in conversation appropriately. - Respiratory effort is unlabored. 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 - Bilateral tibial and sural nerves showed absent responses. Pain Management: - Analgesia: The patient reports persistent tingling and burning in her feet despite taking some of the previously prescribed pregabalin. - Adverse Effects: The plan includes monitoring for potential side effects of pregabalin, such as sleepiness and grogginess, as the dose is increased. [facility] Medical History (Updated 03/22/25 @ 10:05 by Abisai Munroe MD) Vitamin D deficiency Varicose veins of lower extremity Type 2 diabetes mellitus with hyperglycemia Plantar fasciitis Osteoarthritis of both knees Lumbar disc disease Arthritis of right glenohumeral joint Diverticulosis Colon polyp Physical Exam Vital Signs: Last Vital Signs Pulse 76 03/22/25 09:41 Resp 16 03/22/25 09:41 BP 145/65 H 03/22/25 09:41 Pulse Ox 97 03/22/25 09:41 Oxygen Delivery Method Room Air 03/22/25 09:41 BMI result Body Mass Index 28.9 Assessment & Plan Assessment & Plan (1) Diabetic neuropathy: Code(s): E11.40 - Type 2 diabetes mellitus with diabetic neuropathy, unspecified Category: Medical Plan Plan Patient was informed and verbally consented to the use of an ambient scribe for clinic note documentation during this visit. 1. Diabetic Polyneuropathy - The patient's nerve conduction study confirmed a symmetric distal sensory-motor polyneuropathy, likely secondary to diabetes, which is considered an irreversible condition. - The management will focus on controlling her symptoms of tingling and burning. - She will restart pregabalin, beginning with one pill at night. - She was instructed to titrate the dose by adding one pill in the morning after a few days if she is not too sleepy, and another in the afternoon after a few more days if tolerated, with the goal of finding the maximum effective dose, which can range up to 300 mg. - A new prescription for 60 pills of pregabalin will be sent to the pharmacy to ensure an adequate supply for dose titration. - More invasive treatment options were mentioned but will be deferred in favor of a trial of oral medication first. - A follow-up visit is scheduled in three weeks to assess her response to the medication. 2. Thigh Pain - The patient reports soreness on the side of her thigh. - Evaluation and management of this issue will be deferred to focus on treating the polyneuropathy and assessing the response to a single intervention at this time. Discussion Notes I informed the patient that her nerve conduction study confirmed the diagnosis of neuropathy in her feet, which is what we suspected and is likely related to her history of diabetes. I explained that while we cannot fix the underlying nerve issue, we can manage the symptoms of tingling and burning. We discussed restarting treatment with pregabalin (Lyrica). I provided detailed instructions on a slow dose titration schedule, starting with one pill at night and gradually increasing to potentially three times a day, as long as she does not experience excessive grogginess or sleepiness. I emphasized that we are starting low and going slow to minimize side effects and find the maximum dose she can tolerate for optimal effect. I advised that we would try medication first before considering more invasive options. Regarding her other complaint of thigh soreness, I recommended we address one problem at a time and focus on the neuropathy treatment first. A new prescription for a larger quantity of pregabalin will be sent to her pharmacy, and a follow-up visit is scheduled in three weeks to monitor her progress. Patient Instructions - Your nerve test confirmed that you have nerve damage in your feet, called neuropathy, which is likely caused by diabetes. - We will treat your symptoms of tingling and burning with a medicine called pregabalin (Lyrica). - Start by taking one pill at night for a few days. - If you do not feel too sleepy or groggy, you can then add a second pill in the morning. - If you continue to feel okay after a few more days, you can add a third pill in the afternoon. - It is important to increase your dose slowly to see how the medicine affects you. - A new prescription for 60 pills will be sent to your pharmacy. - You do not need to apply any special creams to your feet. - Please follow up in the clinic in 3 weeks to check on your progress. Medications: Changed From pregabalin 75mg QHS 30 caps 5RF To pregabalin 75 mg PO BID 60 caps 0RF Coding Level of Care Code Est Pt Level 3 (94975) Diagnoses Diabetic neuropathy E11.40
[2025-03-22 09:41] VITALS: BP 145/65; PULSE 76; RESP 16; O2SAT 97; BMI 28.9
--- OUTSIDE RECORDS SUMMARY | 2025-03-22 10:01 | XMS_ITS | Encounter Summary ---
Author Organization [facility] Address [address] [place] [address] Care Team Providers Care Extender Name Role Phone Boni Castaneda MD Primary Care Provider [phone] Encounter Details Date Type Department Care Team (Late Contact Info) Description 03/21/2025 Results Follow-Up Internal Medicine - [place] [address] [place] [address] Boni Castaneda MD [address] [place] [address] Social History Tobacco Use Types Packs/Day Years [...] on file documented as of this encounter Plan of Treatment Upcoming Encounters Date Type Department Care Team (Late Contact Info) Description 05/04/2025 8:15 AM EST Appointment [facility] Nuclear Medicine [address] [place] [phone] 05/08/2025 9:30 AM EST Office Visit Endocrinology - [address] [address] Michelle Lowry PA [address] [place] [address] 09/19/2025 9:30 AM EDT Appointment [facility] [address] [place] [address] 11/22/2025 9:40 AM EDT Office Visit Gastroenterology - 299 [facility] [address] [address] Nellie Walsh, CHRIS [address] [address] documented as of this encounter Visit Diagnoses Not on filedocumented in this encounter Additional Health Concerns Infection Onset Date Last Indicated Resolved Time Enteropathogenic E. coli (EPEC) 10/06/2024 documented as of this encounter Care Teams Extender Relationship Specialty Start Date End Date Boni Castaneda MD [facility] [place] [address] PCP - General Internal Medicine 03/06/25 documented as of this encounter
--- OUTSIDE RECORDS SUMMARY | 2025-03-22 10:01 | XMS_ITS ---
Author Name [facility] Organization Unknown Encounters Encounter Type Encounter Reason Primary Diagnosis Location Date Emergency [facility] 12/09/2023 Care Team Organization Name Specialty Phone Email Start Date End Da te [facility] 11/09/2024 [facility] KRUPA THOMAS Primary Care 12/09/2023 [facility] Michelle Lowry Primary Care 08/29/2022 11/09/19 [facility] Boni Castaneda Primary Care 01/28/20222023
--- OUTSIDE RECORDS SUMMARY | 2025-03-22 10:01 | XMS_ITS | Encounter Summary ---
Author Organization [facility] Address [address] [place] [address] Care Team Providers Care Elementary Educator Name Role Phone Boni Castaneda MD Primary Care Provider [phone] Encounter Details Date Type Department Care Team (Late Contact Info) Description 03/08/2025 Results Follow-Up Gastroenterology - [address] [phone] Nellie Walsh NP [address] [address] Social History Tobacco Use Types Packs/Day Years [...] Info) Description 05/04/2025 8:15 AM EST Appointment [facility] Nuclear Medicine [address] [place] [address] 05/08/2025 9:30 AM EST Office Visit Endocrinology - [place] [address] [place] [address] Michelle Lowry PA [address] [place] [address] 09/19/2025 9:30 AM EDT Appointment [facility] [address] [place] [phone] 11/22/2025 9:40 AM EDT Office Visit Gastroenterology - 299 [place] [address] [address] Nellie Walsh, TOURIST INFORMATION OFFICER [address] [address] documented as of this encounter Visit Diagnoses Not on filedocumented in this encounter Additional Health Concerns Infection Onset Date Last Indicated Resolved Time Enteropathogenic E. coli (EPEC) 10/06/2024 C. difficile Rule-Out 03/08/2025 03/08/20252024 1:59 PM EST Gastrointestinal Rule-Out 03/08/2025 03/08/2025 4:06 PM EST documented as of this encounter Care Teams Elementary Educator Relationship Specialty Start Date End Date Boni Castaneda MD [address] [place] [address] PCP - General Internal Medicine 03/06/25 documented as of this encounter
--- OUTSIDE RECORDS SUMMARY | 2025-03-22 10:01 | XMS_ITS | Encounter Summary ---
Author Organization [facility] Address [address] [place] [address] Care Team Providers Care Chief Minister Name Role Phone Boni Castaneda MD Primary Care Provider [phone] Encounter Details Date Type Department Care Team (Late st Contact Info) Description 03/06/2025 Results Follow-Up Gastroenterology - [address] [phone] Nellie Walsh NP [address] [address] Social History Tobacco Use Types Packs/Day Years [...] on file documented as of this encounter Progress Notes * Brandy Boyer MA - 03/15/2025 1:52 PM EST LM for pt to call back. documented in this encounter Plan of Treatment Upcoming Encounters Date Type Department Care Team (Late Contact Info) Description 05/04/2025 8:15 AM EST Appointment [facility] Nuclear Medicine [address] [place] [address] 05/08/2025 9:30 AM EST Office Visit Endocrinology - [place] [address] [place] [address] Michelle Lowry PA [address] [place] [address] 09/19/2025 9:30 AM EDT Appointment [facility] [address] [place] [address] 11/22/2025 9:40 AM EDT Office Visit Gastroenterology - [address] [phone] Nellie Walsh NP [address] [address] documented as of this encounter Visit Diagnoses Not on filedocumented in this encounter Additional Health Concerns Infection Onset Date Last Indicated Resolved Time Enteropathogenic E. coli (EPEC) 10/06/2024 C. difficile Rule-Out 03/08/2025 03/08/20252024 1:59 PM EST Gastrointestinal Rule-Out 03/08/2025 03/08/2025 4:06 PM EST documented as of this encounter Care Teams Chief Minister Relationship Specialty Start Date End Date Boni Castaneda MD [address] [place] [address] PCP - General Internal Medicine 03/06/25 documented as of this encounter
--- OUTSIDE RECORDS SUMMARY | 2025-03-22 10:01 | XMS_ITS | Encounter Summary ---
Author Organization [facility] Address [address] [place] [address] Care Team Providers Care Religious Educator Name Role Phone Boni Castaneda MD Primary Care Provider [phone] Reason for Visit * Reason Onset Date Comments Results 10/12/2024 Encounter Details Date Type Department Care Team (Late st Contact Info) Description 10/12/2024 Telephone Internal Medicine - [place] [address] [place] [phone] Boni Castaneda MD [address] [place] [address] Social History Tobacco Use Types Packs/Day Years [...] as of this encounter Progress Notes * Lesia Jerome MA - 10/12/2024 10:21 AM EDT I have reveiwed the results of your bone density test, which does show significant osteoporosis, orthinning of the bones. This puts you at risk of fracture. The recommendations are to be on Calcium and Vit D supplementation and a medication to help prevent further bone loss. The name of the medication is Fosamax. Common side effects include nausea, stomach pain ,constipation, diarrhea, gas, bloating or fullness in the stomach, change in ability to taste food, headache, dizziness, swelling of the joints, hands, or legs, muscle spasms, twitches, or cramps. Serious side effects include jaw necrosis, esophagus irritation and low calcium levels. If you'd like to start a medication that can help reduce the risk of fracture, please let me know and I can send that to your pharmacy. Otherwise, please make sure you're taking supplemental calcium and vitamin D; I'd recommend approximately 1200mg of extra calcium and 800 units of extra vitamin D daily. If you have any questions or concerns, please feel free to contact me. Written by Boni Castaneda MD on 10/11/2024 1:39 PM EDT Patient has agreed to medication. Rx's pended. * Stefan Soria - 10/12/2024 10:15 AM EDT Caller requesting call back from provider: Is the caller the patient? yes If caller is not the patient, what is the callers name? Callers relationship to patient? Reason for call back: Patient requesting a call back with bone density results Caller offered to speak with the nurse for assistance: YES Response: Patient offered to speak with nurse for assistance and patient agreed. Message forwarded to nurse. documented in this encounter Plan of Treatment Upcoming Encounters Date Type Department Care Team (Late st Contact Info) Description 05/04/2025 8:15 AM EST Appointment [facility] Nuclear Medicine [address] [place] [phone] 05/08/2025 9:30 AM EST Office Visit Endocrinology - [place] [address] [place] [phone] Michelle Lowry PA [address] [place] [address] 09/19/2025 9:30 AM EDT Appointment [facility] [address] [place] [phone] 11/22/2025 9:40 AM EDT Office Visit Gastroenterology - [address] [facility] [address] [place] [address] Nellie Walsh, CHRIS [address] [facility] [address] [place] [address] documented as of this encounter Visit Diagnoses Not on filedocumented in this encounter Additional Health Concerns Infection Onset Date Last Indicated Resolved Time Enteropathogenic E. coli (EPEC) 10/06/2024 C. difficile Rule-Out 03/08/2025 03/08/20252024 1:59 PM EST Gastrointestinal Rule-Out 03/08/2025 03/08/2025 4:06 PM EST documented as of this encounter Care Teams Religious Educator Relationship Specialty Start Date End Date Boni Castaneda MD [address] [place] [address] PCP - General Internal Medicine 03/06/25 documented as of this encounter
--- OUTSIDE RECORDS SUMMARY | 2025-03-22 10:02 | XMS_ITS | Encounter Summary ---
Author Organization [facility] Address [address] [place] [address] Care Team Providers Care Public Aid Eligibility Assistant Name Role Phone Boni Castaneda MD Primary Care Provider [phone] Encounter Details Date Type Department Care Team (Late st Contact Info) Description 03/03/2025 Results Follow-Up Internal Medicine - [place] [address] [facility] [place] [phone] Nichole Hernandez MA Social History Tobacco Use Types Packs/Day Years [...] Info) Description 05/04/2025 8:15 AM EST Appointment [facility] Nuclear Medicine [address] [place] [phone] 05/08/2025 9:30 AM EST Office Visit Endocrinology - [place] [address] [place] [phone] Michelle Lowry PA [address] [place] [address] 09/19/2025 9:30 AM EDT Appointment [facility] [address] [place] [phone] 11/22/2025 9:40 AM EDT Office Visit Gastroenterology - [address] [phone] Nellie Walsh, CHRIS [address] [address] documented as of this encounter Visit Diagnoses Not on filedocumented in this encounter Discontinued Medications Medication Sig Discontinue Reason Start Date End Da te insulin glargine,hum.rec.anlog (Basaglar KwikPen U-100 Insulin) 100 unit/mL (3 mL) injection pen INJECT 38 UNITS INTO SKIN AT BEDTIME, INCR 2 UNITS EVERY 3 DAYS IF FASTING SUGARS >130 MAX 60 UNITS 03/02/2025 03/08/2025 documented as of this encounter Historical Medications * This list may reflect changes made after this encounter. insulin glargine,hum.rec. anlog (Basaglar KwikPen U-100 Insulin) 100 unit/mL (3 mL) injection pen INJECT 42 UNITS INTO SKIN AT BEDTIME, INCR 2 UNITS EVERY 3 DAYS IF FASTING SUGARS >130 MAX 60 UNITS 03/08/2025 added in this encounter Additional Health Concerns Infection Onset Date Last Indicated Resolved Time Enteropathogenic E. coli (EPEC) 10/06/2024 C. difficile Rule-Out 03/08/2025 03/08/20252024 1:59 PM EST Gastrointestinal Rule-Out 03/08/2025 03/08/2025 4:06 PM EST documented as of this encounter Care Teams Public Aid Eligibility Assistant Relationship Specialty Start Date End Date Boni Castaneda MD [address] [place] [address] PCP - General Internal Medicine 03/06/25 documented as of this encounter
--- OUTSIDE RECORDS SUMMARY | 2025-03-22 10:02 | XMS_ITS | Clinical Summary ---
Author Organization [facility] Address [address] [place] [address] Phone Care Team Providers Care Health Services Information Specialist Name Role Phone Boni Castaneda MD Primary Care Provider [phone] Allergies Active Allergy Reactions Criticality Noted Date Comments Penicillin G Anaphylaxis,Nausea And Vomiting High Medications pen needle, diabetic (BD Ultra-Fine Short Pen Needle) 31 gauge x 08/05 needle Use with insulin pen once daily 07/22/19 24 Active blood sugar diagnostic (FreeStyle Lite Strips) [...] twice daily. 1 each 09/21/19 25 Active pregabalin (LYRICA) 75 mg capsule Take 1 capsule (75 mg total) by mouth at bedtime. Max Daily Amount: 75 mg 11/09/19 25 Active dicyclomine (BENTYL) 10 mg capsuleIndication s:Diarrhea, unspecified type Take 1 capsule (10 mg total) by mouth 4 (four) times a day (before meals and nightly). 360 each 1 12/08/19 25 026 Active alendronate (FOSAMAX) 70 mg tablet TAKE 1 TABLET (70 MG TOTAL) BY MOUTH EVERY 7 (SEVEN) DAYS. TAKE IN THE MORNING WITH A FULL GLASS OF WATER, ON AN EMPTY STOMACH, AND DO NOT TAKE ANYTHING ELSE BY MOUTH OR LIE DOWN FOR THE NEXT 30 MIN. 12 tablet 1 12/29/19 25 Active vitamin D3-vitamin K2 1,250-200 mcg capsule Take by mouth. Active freestyle (FreeStyle Lancets) 28 gauge lancetsIndication s:Type 2 diabetes mellitus with hyperglycemia, without long-term current use of insulin ([facility] V24, [facility] V28) 1 Device by Does not apply route 2 times daily. Use to test blood sugars twice daily DX: E11.65 200 each 11 01/13/20 25 Active insulin glargine,hum.rec. anlog (Basaglar KwikPen U-100 Insulin) 100 unit/mL (3 mL) injection pen INJECT 42 UNITS INTO SKIN AT BEDTIME, INCR 2 UNITS EVERY 3 DAYS IF FASTING SUGARS >130 MAX 60 UNITS 03/08/20 25 Active ondansetron ODT (ZOFRAN-ODT) 4 mg disintegrating tabletIndications :Diarrhea, unspecified type,Excessive flatus,Early satiety DISSOLVE 1 TABLET ON TOP OF TONGUE EVERY 8 HOURS NEEDED FOR NAUSEA AND VOMITING FOR UP TO 7 DAYS 20 tablet 12/07/19 025 Discontinued(R eorder) insulin glargine,hum.rec. anlog (Basaglar KwikPen U-100 Insulin) 100 unit/mL (3 mL) injection pen INJECT 40 UNITS INTO SKIN AT BEDTIME, INCR 2 UNITS EVERY 3 DAYS IF FASTING SUGARS >130 MAX 60 UNITS 15 mL 12 01/13/20 25 025 Discontinued(R eorder) insulin glargine,hum.rec. anlog (Basaglar KwikPen U-100 Insulin) 100 unit/mL (3 mL) injection pen INJECT 38 UNITS INTO SKIN AT BEDTIME, INCR 2 UNITS EVERY 3 DAYS IF FASTING SUGARS >130 MAX 60 UNITS 15 mL 12 03/02/20 25 025 Discontinued ondansetron ODT (ZOFRAN-ODT) 4 mg disintegrating tabletIndications :Diarrhea, unspecified type,Early satiety Dissolve 1 tablet (4 mg total) on top of the tongue every 8 (eight) hours if needed for nausea or vomiting for up to 10 days. 30 tablet 03/06/20 25 025 azithromycin (Zithromax) 500 mg tablet Take 2 tablets (1,000 mg total) by mouth 1 (one) time each day for 1 day, THEN 1 tablet (500 mg total) 1 (one) time each day for 3 days. 5 each 03/08/20 25 025 Active Problems Problem Noted Date Diagnosed Date Sensorineural hearing loss (SNHL) of both ears 0 12/16/2024 Diabetes mellitus 12/07/2024 Disease due to severe acute respiratory syndrome coronavirus 2 (SARS-CoV-2) 05/28/2024 Overview (12/07/2024): Problem added by Discern Expert Vitamin D deficiency 05/21/2023 Colon polyp 04/08/2021 Diverticulosis 04/08/2021 Overview (12/11/2023): Mild per 2019 colonoscopy report. Glenohumeral arthritis, right 04/08/2021 Lumbar disc disease 04/08/2021 Osteoarthritis of both knees 03/25/2021 Overview (12/11/2023): Chronic left knee pain. Plantar fasciitis 03/25/2021 Varicose veins of lower extremity 03/25/2021 Type 2 diabetes mellitus wit h hyperglycemia, without long-term current use of insulin 02/05/2021 Encounters Date Type Department Care Team Description 03/21/2025 7:48 AM EST - 03/21/2025 11:59 PM EST Hospital Encounter [facility] [address] [place] [phone] Breast asymmetry Discharge Disposition: Home or Self Care 03/21/2025 Results Follow-Up Internal Medicine - [place] [address] [place] [phone] Boni Castaneda MD 03/10/2025 7:37 AM EST - 03/10/2025 11:59 PM EST Hospital Encounter [facility] CT Scan [address] [place] [phone] Left lower quadrant abdominal pain; Diarrhea, unspecified type; Early satiety; Chronic nausea Discharge Disposition: Home or Self Care 03/10/2025 Telephone Gastroenterology - [place] [address] [facility] 175 [facility] [address] [place] [phone] Nellie Walsh NP 03/08/2025 10:20 AM EST Lab Draw Station - [address] Left lower quadrant abdominal pain; Diarrhea, unspecified type; Early satiety; Chronic nausea; Type 2 diabetes mellitus with diabetic autonomic neuropathy, with long-term current use of insulin ([facility] V24, [facility] V28); Elevated alkaline phosphatase level; Type 1 diabetes mellitus with diabetic autonomic (poly)neuropathy ([facility] V24, [facility] V28); Infectious gastroenteritis and colitis, unspecified 03/08/2025 Results Follow-Up Gastroenterology - [address] [place] [address] [address] [place] [phone] Nellie Walsh NP 03/06/2025 2:40 PM EST Lab Draw Station - [address] [place] [phone] Left lower quadrant abdominal pain; Diarrhea, unspecified type; Early satiety; Chronic nausea 03/06/2025 2:20 PM EST Office Visit Gastroenterology - [address] [place] [phone] Nellie Walsh NP Left lower quadrant abdominal pain (Primary Dx); Diarrhea, unspecified type; Early satiety; Chronic nausea; Type 2 diabetes mellitus with diabetic autonomic neuropathy, with long-term current use of insulin ([facility] V24, [facility] V28); Elevated alkaline phosphatase level 03/06/2025 Results Follow-Up Gastroenterology - [address] [place] [phone] Nellie Walsh NP 03/03/2025 Results Follow-Up Internal Medicine - [address] [phone] Nichole Hernandez [place] 03/02/2025 10:45 AM EST Lab Draw Station - [place] [address] [place], [place] Type 2 diabetes mellitus with hyperglycemia, without long-term current use of insulin ([facility] V24, [facility] V28) 03/02/2025 10:15 AM EST Office Visit Endocrinology - [place] [phone] [place], [place] [phone] Rachel Whitney PA Type 2 diabetes mellitus with hyperglycemia, without long-term current use of insulin ([facility] V24, [facility] V28) (Primary Dx); Elevated blood pressure reading 01/26/2025 Telephone Gastroenterology - [address] [facility] [address] [phone] Srinivasan Goldman MD 01/12/2025 10:15 AM EDT Office Visit [address] [phone] Rachel Whitney PA Type 2 diabetes mellitus with hyperglycemia, without long-term current use of insulin ([facility] V24, [facility] V28) (Primary Dx) 01/04/2025 Telephone Internal Medicine - [place] [address] [place] [phone] Boni Castaneda MD from Last 3 Months Immunizations Immunization Administration Dates Next Due Pfizer SARS-CoV-2 COVID-19, mRNA, LNP-S, preservative free 06/10/2021 Surgical History Surgery Date Site/Laterality Comments OTHER SURGICAL HISTORY 03/06/2020 PROCEDURE: GA TOTAL ABDOMINAL HYSTERECT W/WO RMVL TUBE OVARY TUBAL LIGATION PROCEDURE: HISTORICAL TUBAL LIGATION CHOLECYSTECTOMY 06/11/2016 PROCEDURE: HISTORICAL CHOLECYSTECTOMY; COMMENT: lap juanita COLONOSCOPY 2018 PROCEDURE: HISTORICAL COLONOSCOPY; COMMENT: polyp, mild diverticulosis, repeat in 2023. Medical History Medical History Date Comments Type 2 diabetes mellitus wit h hyperglycemia, without long-term current use of insulin ([facility] V24, [facility] V28) 02/05/2021 DX:Type 2 diabetes mellitus with hyperglycemia, without long-term current use of insulin ([facility]) Osteoarthritis of both knees 03/25/2021 DX: Osteoarthritis [...] AM EDT Sexual Orientation Not on file Obstetrics History Para Term AB IAB SAB Ectopic Multiple Livin g Live Births 2 Last Filed Vital Signs Vital Sign Reading Time Taken Comments Blood Pressure 138/80 03/06/2025 1:53 PM EST Pulse 77 03/06/2025 1:53 PM EST Temperature 36.7 C (98 F) 03/02/2025 10:07 AM EST Respiratory Rate 18 03/02/2025 10:07 AM EST Oxygen Saturation 98% 03/06/2025 1:53 PM EST Inhaled Oxygen Concentration - - Weight 92.3 kg (203 lb 6.4 oz) 03/06/2025 1:53 P M EST Height 162.6 cm (5' 4 ) 03/06/2025 1:53 PM EST Body Mass Index 34.91 03/06/2025 1:53 PM EST Plan of Treatment Upcoming Encounters Date Type Department Care Team (Late st Contact Info) Description 05/04/2025 8:15 AM EST Appointment [facility] Nuclear Medicine [address] [place] [phone] 05/08/2025 9:30 AM EST Office Visit Endocrinology - [place] [address] [place] [phone] Michelle Lowry PA [address] [place] [address] 09/19/2025 9:30 AM EDT Appointment [facility] [address] [place] [phone] 11/22/2025 9:40 AM EDT Office Visit Gastroenterology - [address] [phone] Nellie Walsh NP [address] [address] Health Maintenance Due Date Last Done Comments Medicare Annual Wellness Visit 02/22/2022 Depression Screening 03/23/2024 07/22/2023 Influenza Vaccine (#1) 2024 Diabetes: Annual Foot Exam 07/19/2025 07/19/2024 Falls Risk Assessment 07/20/2025 07/20/2024, 024 Social Influencers of Health Screening 07/20/2025 07/20/2024 Diabetes: Annual Urine Albumin-Creatinine Ratio (uACR) 08/31/2025 08/31/2024, 11/05/2022 Diabetes: Blood Sugar Control Test (HGBA1C) 08/31/2025 03/02/2025, 08/31/2024, 03/07/2024, Additional history exists Diabetes: Annual Retina Eye Exam 10/24/2025 10/24/2024, 09/15/2023 Diabetes: Annual GFR (Glomerular Filtration Rate) 03/06/2026 03/06/2025, 10/05/2024, 08/31/2024, Additional history exists Breast Cancer Screening 03/21/2027 03/21/20 25, 08/05/2024, 01/20/2024, Additional history exists Cholesterol Screening (Lipid Panel) 03/07/2029 03/07/2024, 11/05/2022 Colorectal Cancer Screening: Colonoscopy 06/08/2031 06/07/2021 Osteoporosis Screening (Bone Density Screening) 10/10/2034 10/10/2024 Hepatitis C Screening Completed 02/05/2021 COVID-19 Vaccine [...] Routine 03/21/2025 9:24 AM EST Breast asymmetry CT ABDOMEN PELVIS W CONTRAST Routine 03/10/2025 8:34 AM EST Left lower quadrant abdominal pain Diarrhea, unspecified type Early satiety Chronic nausea ANTIMITOCHONDRIAL ANTIBODY Routine 03/08/2025 11:19 AM EST Elevated alkaline phosphatase level PANCREATIC ELASTASE 1 Routine 03/08/2025 11:13 AM EST Left lower quadrant abdominal pain Diarrhea, unspecified type Early satiety Chronic nausea HELICOBACTER PYLORI ANTIGEN, STOOL Routine 03/08/2025 11:13 AM EST Left lower quadrant abdominal pain Diarrhea, unspecified type Early satiety Chronic nausea CALPROTECTIN, STOOL Routine 03/08/2025 11:13 AM EST Left lower quadrant abdominal pain Diarrhea, unspecified type Early satiety Chronic nausea GASTROINTESTINAL PATHOGENS BY PCR Routine 03/08/2025 11:09 AM EST Diarrhea, unspecified type Left lower quadrant abdominal pain Type 1 diabetes mellitus with diabetic autonomic (poly)neuropathy ([facility] V24, [facility] V28) Infectious gastroenteritis and colitis, unspecified TISSUE TRANSGLUTAMINASE, IGG Routine 03/06/2025 2:25 PM EST Left lower quadrant abdominal pain Diarrhea, unspecified type Early satiety Chronic nausea TISSUE TRANSGLUTAMINASE, IGA Routine 03/06/2025 2:25 PM EST Left lower quadrant abdominal pain Diarrhea, unspecified type Early satiety Chronic nausea BASIC METABOLIC PANEL Routine 03/06/2025 2:25 PM EST Left lower quadrant abdominal pain Diarrhea, unspecified type Early satiety Chronic nausea HEMOGLOBIN A1C Routine 03/02/2025 10:47 AM EST Type 2 diabetes mellitus with hyperglycemia, without long-term current use of insulin ([facility] V24, [facility] V28) POC GLUCOSE Routine 01/12/2025 10:36 AM EDT Type 2 diabetes mellitus with hyperglycemia, without long-term current use of insulin ([facility] V24, [facility] V28) EXTERNAL DIABETIC RETINA EYE EXAM 10/24/2024 BD BONE DENSITY DXA AXIAL SKELETON Routine 10/10/2024 2:42 PM EDT Encounter for osteoporosis screening in asymptomatic postmenopausal patient MICROALBUMIN CREATININE URINE RATIO Routine 08/31/2024 9:20 AM EDT Type 2 diabetes mellitus with hyperglycemia, without long-term current use of insulin ([facility] V24, [facility] V28) LIPID PANEL WITH REFLEX TO DIRECT LDL Routine 03/07/2024 11:00 AM EST Mixed hyperlipidemia DEPRESSION SCREENING Routine 07/22/2023 FALLS RISK ASSESSMENT Routine 07/22/2023 COLONOSCOPY Routine 06/07/2021 HEPATITIS C SCREENING Routine 02/05/2021 from Last 3 Months or Most Recently Relevant to Health Maintenance Results * MG Mammo Digital Diagnostic w [...] Signed Date: 03/21/2025 09:24 ET Workstation ID: [id number] Transcribed By: Self Edit Transcribed Date: 03/21/2025 09:08 ET Narrative 03/21/2025 9:24 AM EST EXAM: MG MAMMO DIGITAL DIAGNOSTIC W RODRIGO BILAT EXAM [...] Note Khari Lam MD - 03/21/2025 EXAM: MG MAMMO DIGITAL DIAGNOSTIC W RODRIGO BILAT EXAM [...] Signed Date: 03/21/2025 09:24 ET Workstation ID: [id number] Transcribed By: Self Edit Transcribed Date: 03/21/2025 09:08 ET us Boni Castaneda MD IMG BI PROCEDURES Final Result * CT Abdomen Pelvis w Contrast (03/10/2025 8:34 AM EST) Anatomical Region Laterality Modality Body Computed Tomogra phy 03/14/2025 11:2 5 AM EST Impressions 03/14/2025 5:25 PM EST 1. No acute intra-abdominal or pelvic process. 2. Diverticulosis without evidence for acute diverticulitis. 3. Fat-containing ventral hernia. -------- FINAL REPORT -------- Dictated By: Homero Butcher Dictated Date: 03/14/2025 11:25 ET Assigned Physician: Homero Butcher Reviewed and Electronically Signed By: Homero Butcher Signed Date: 03/14/2025 17:25 ET Workstation ID: [id number] Transcribed By: Self Edit Transcribed Date: 03/14/2025 17:11 ET Narrative 03/14/2025 5:25 PM EST PROCEDURE: CT ABDOMEN/PELVIS WITH CONTRAST INDICATION: Left lower quadrant abdominal pain TECHNIQUE: CT of the abdomen and pelvis following the intravenous administration of 90cc Isovue 370. Multiplanar reformats. The examination was performed utilizing dose reduction techniques. Total DLP 1150 COMPARISON: No priors available. FINDINGS: LOWER THORAX: Lung bases are clear. HEPATOBILIARY: No focal liver lesions. Cholecystectomy. SPLEEN: No focal lesion. PANCREAS: No focal mass or ductal dilatation. ADRENALS: No nodules. KIDNEYS/URETERS: Punctate nonobstructing calculus lower pole left kidney. PELVIC ORGANS/BLADDER: Hysterectomy. PERITONEUM / RETROPERITONEUM: No ascites or free air. No retroperitoneal lymphadenopathy. VESSELS: Scattered atherosclerotic calcifications throughout the aorta and its major branches. No aneurysm. GI TRACT: No bowel distention or wall thickening. Normal appendix. Diverticulosis without evidence for acute diverticulitis. BONES AND SOFT TISSUES: Scattered degenerative changes seen throughout the bones. Fat-containing ventral hernia with defect measuring 2.2 cm and hernia measuring 5.5 cm. Procedure Note Homero Butcher MD - 03/14/2025 PROCEDURE: CT ABDOMEN/PELVIS WITH CONTRAST INDICATION: Left lower quadrant abdominal pain TECHNIQUE: CT of the abdomen and pelvis following the intravenousadministration of 90cc Isovue 370. Multiplanar reformats. The examinationwas performed utilizing dose reduction techniques. Total DLP 1150 COMPARISON: No priors available. FINDINGS: LOWER THORAX: Lung bases are clear. HEPATOBILIARY: No focal liver lesions. Cholecystectomy. SPLEEN: No focal lesion. PANCREAS: No focal mass or ductal dilatation. ADRENALS: No nodules. KIDNEYS/URETERS: Punctate nonobstructing calculus lower pole leftkidney. PELVIC ORGANS/BLADDER: Hysterectomy. PERITONEUM / RETROPERITONEUM: No ascites or free air. No retroperitoneallymphadenopathy. VESSELS: Scattered atherosclerotic calcifications throughout the aorta andits major branches. No aneurysm. GI TRACT: No bowel distention or wall thickening. Normal appendix.Diverticulosis without evidence for acute diverticulitis. BONES AND SOFT TISSUES: Scattered degenerative changes seen throughout thebones. Fat-containing ventral hernia with defect measuring 2.2 cm andhernia measuring 5.5 cm. IMPRESSION: 1. No acute intra-abdominal or pelvic process. 2. Diverticulosis without evidence for acute diverticulitis. 3. Fat-containing ventral hernia. -------- FINAL REPORT -------- Dictated By: Homero Butcher Dictated Date: 03/14/2025 11:25 ET Assigned Physician: Homero Butcher Reviewed and Electronically Signed By: Homero Butcher Signed Date: 03/14/2025 17:25 ET Workstation ID: [id number] Transcribed By: Self Edit Transcribed Date: 03/14/2025 17:11 ET us Nellie Walsh NP IMG CT PROCEDURES Final Result * (ABNORMAL) Antimitochondrial antibody (03/08/2025 11:19 AM EST) Mitochondrial Antibody Quantitative 85.4(H) <=20.0 units LAB CHEMISTRY METHOD 03/15/2025 12:32 PM EST [facility] Mitochondrial Antibody Qualitative Positive (A) Negative LAB CHEMISTRY METHOD 03/15/2025 12:32 PM EST [facility] Blood Venous blood specimen / Unknown Venipuncture / Unknown 03/08/2025 11:19 AM EST 03/08/2025 11:19 AM EST us Nellie Nico VOCATIONAL GUIDANCE COUNSELOR LAB BLOOD ORDERABLES Final Resu lt [facility] [address] [place] [address], * Pancreatic elastase 1 (03/08/2025 11:13 AM EST) Pancreatic Elastase 1 269.0 >200 mcg/g 03/13/2025 2:52 PM EST [facility] Comment: Adult and Pediatric Referance Ranges for Pancreatic Elastase-1: Normal: >200 mcg/g Moderate Pancreatic Insufficiency: 100-200 mcg/g Severe Pancreatic Insufficiency: <100 mcg/g Test performed at [facility], [address], [place] [address] Bertha Watson MD, PhD - Rn Urology Stool Rectum structure / Unknown Non-blood Collection / Unknown 03/08/2025 11:13 AM EST 03/08/2025 11:13 AM EST Nellie Walsh NP LAB BODY FLUIDS AND STOOLS ORDE RABLES Final Result [facility] [address] [place] [address] * Calprotectin, stool (03/08/2025 11:13 AM EST) Calprotectin, Fecal 14.2 <50 mcg/g 03/13/2025 2:52 PM EST [facility] Comment: <50 mcg/g Normal 50 - 120 mcg/g Borderline >120 mcg/g Abnormal Borderline results suggest repeat testing in 4 to 6 weeks. Test performed at [facility], [address] [place], [place] [id number] Bertha Watson MD, PhD - Rn Urology Stool Rectum structure / Unknown Non-blood Collection / Unknown 03/08/2025 11:13 AM EST 03/08/2025 11:13 AM EST us Nellie Nico VOCATIONAL GUIDANCE COUNSELOR LAB BODY FLUIDS AND STOOLS ORDE RABPOPEYE Final Result Performing Organization Address City/[facility]/ZIP Co de Phone Number [facility] [address] [place] [address] * Helicobacter pylori antigen, stool (03/08/2025 11:13 AM EST) Helicobacter Pylori Ag Not detected Not detected 03/14/2025 2:40 PM EST [facility] Comment: This test was performed at [facility] using a chemiluminescent immunoassay intended for the qualitative determination of helicobacter pylori (H. pylori) antigen in human stool. The test is an aid in the diagnosis of patients suspected of H. pylori infection and to measure post therapy response from patients. Assay results should be used in conjunction with other clinical and laboratory data to assist the clinician in making individual patient management decisions. A negative test result does not preclude the possibility of the presence of H. pylori antigen in the specimen, which may occur if the level of antigen is below the detection limit of the test. Antimicrobials, proton pump inhibitors, and bismuth preparations are known to suppress H. pylori and, if ingested, may give a false negative result. In these cases a new fecal sample should be collected and tested 14 days after treatment has stopped. Positive results from patients that have used antibiotics, PPIs, or bismuth compounds in the 14 days prior to fecal sample collection are still considered accurate. This assay has not been evaluated in a pediatric population. This test has been approved as an in vitro diagnostic by the [place] Food and Drug Administration. Test performed at [facility], [address] , [place] [address] Bertha Watson MD, PhD - Rn Urology Stool Rectum structure / Unknown Non-blood Collection / Unknown 03/08/2025 11:13 AM EST 03/08/2025 11:13 AM EST Nellie Walsh VOCATIONAL GUIDANCE COUNSELOR LAB BODY FLUIDS AND STOOLS ORDBouchra RABPOPEYE Final Result [facility] [address] [place] [address] * (ABNORMAL) Gastrointestinal pathogens molecular study (03/08/2025 11:09 AM EST) [facility] Campylobacter Detection by PCR Not Detected Not Detected LAB MICROBIOLOGY METHOD 5 4:06 PM EST [facility] Plesiomonas shigelloides Detection by PCR Not Detected Not Detected LAB MICROBIOLOGY METHOD 5 4:06 PM [facility] Salmonella Detection by PCR Not Detected Not Detected LAB MICROBIOLOGY METHOD 5 4:06 PM [facility] Vibrio Detection by PCR Not Detected Not Detected LAB MICROBIOLOGY METHOD 5 4:06 PM [facility] Vibrio cholerae Detection by PCR Not Detected Not Detected LAB MICROBIOLOGY METHOD 5 4:06 PM [facility] Yersinia enterocolitica Detection by PCR Not Detected Not Detected LAB MICROBIOLOGY METHOD 5 4:06 PM [facility] Enteroaggregative E coli EAEC Detection by PCR Not Detected Not Detected LAB MICROBIOLOGY METHOD 5 4:06 PM [facility] Enteropathogenic E coli EPEC Detection Detected(A ) Not Detected LAB MICROBIOLOGY METHOD 5 4:06 PM [facility] Enterotoxigenic E coli ETEC LTST Detection Not Detected Not Detected LAB MICROBIOLOGY METHOD 5 4:06 PM [facility] Shiga-like toxin producing E coli STEC STX1 STX2 Det Not Detected Not Detected LAB MICROBIOLOGY METHOD 5 4:06 PM [facility] Shigella Enteroinvasive E coli EIEC Detection Not Detected Not Detected LAB MICROBIOLOGY METHOD 5 4:06 PM [facility] Cryptosporidium Detection by PCR Not Detected Not Detected LAB MICROBIOLOGY METHOD 5 4:06 PM [facility] Cyclospora cayetanensis Detection by PCR Not Detected Not Detected LAB MICROBIOLOGY METHOD 5 4:06 PM [facility] Entamoeba histolytica Detection by PCR Not Detected Not Detected LAB MICROBIOLOGY METHOD 5 4:06 PM EST [facility] Giardia lamblia Detection by PCR Not Detected Not Detected LAB MICROBIOLOGY METHOD 5 4:06 PM EST [facility] Adenovirus F 40 41 Detection by PCR Not Detected Not Detected LAB MICROBIOLOGY METHOD 5 4:06 PM EST [facility] Astrovirus Detection by PCR Not Detected Not Detected LAB MICROBIOLOGY METHOD 5 4:06 PM EST [facility] Norovirus GI GII Detection by PCR Not Detected Not Detected LAB MICROBIOLOGY METHOD 5 4:06 PM EST [facility] Sapovirus Detection by PCR Not Detected Not Detected LAB MICROBIOLOGY METHOD 5 4:06 PM [facility] Rotavirus A Detection by PCR Not Detected Not Detected LAB MICROBIOLOGY METHOD 5 4:06 PM [facility] Stool Rectum structure / Unknown Non-blood Collection / Unknown 03/08/2025 11:09 AM EST 03/08/2025 11:09 AM EST Narrative [facility] - 03/08/2025 4:06 PM EST PCR testing is much more sensitive than traditional techniques and allows for the detection of low numbers of stool pathogens. The clinical correlation of PCR results with the need for treatment and clinical outcomes has not been established. Therefore the results of PCR testing for stool pathogens must be taken into clinical context when making treatment decisions. This is a diagnostic test only, repeat testing for cure is not advised. You may consider infectious disease consult for additional guidance. Testing Performed by [employer] us Nellie Walsh NP LAB MICROBIOLOGY - GENERAL MINH MALIN Final Result [facility] [address] [place] [address], * Tissue transglutaminase, IgA (03/06/2025 2:25 PM EST) Tissue Transglutaminase Ab, IgA Quant 1 <4 unit/mL LAB CHEMISTRY METHOD 03/08/2025 12:18 PM EST [facility] Tissue Transglutaminase Ab, IgA Negative Negative LAB CHEMISTRY METHOD 03/08/2025 12:18 PM EST [facility] Blood Venous blood specimen / Unknown Venipuncture / Unknown 03/06/2025 2:25 PM EST 03/06/2025 2:50 PM EST [facility] VOCATIONAL GUIDANCE COUNSELOR LAB BLOOD ORDERABLES Final Resu lt [facility] [address] [place] [address], * Tissue transglutaminase, IgG (03/06/2025 2:25 PM EST) [facility] t-Transglutamin ase (tTG) IgG 3 0 - 5 U/mL 03/07/2025 7:05 PM EST [facility] Comment: Negative 0 - 5 Weak Positive 6 - 9 Positive >9 Blood Venous blood specimen / Unknown Venipuncture / Unknown 03/06/2025 2:25 PM EST 03/06/2025 2:49 PM EST Narrative [facility] - 03/07/2025 7:05 PM EST Performed at: 01 - [facility] [id number] [employer] Firer/Fireman: Melody Montenegro MD, Phone: [phone] Nellie Walsh VOCATIONAL GUIDANCE COUNSELOR LAB BLOOD ORDERABLES Final Resu lt [facility] * (ABNORMAL) Basic metabolic panel (03/06/2025 2:25 PM EST) [facility] Sodium 142 133 - 145 mmol/L 03/06/2025 3:34 PM EST [facility] Potassium 3.9 3.5 - 5.5 mmol/L 03/06/2025 3:34 PM EST [facility] Chloride 101 96 - 110 mmol/L 03/06/2025 3:34 PM [facility] CO2 32 21 - 32 mmol/L 03/06/2025 3:34 PM [facility] Anion Gap 9 3 - 11 03/06/2025 3:34 PM [facility] Glucose 136(H) 70 - 100 mg/dL 03/06/2025 3:34 PM [facility] BUN 10 5 - 25 mg/dL 03/06/2025 3:34 PM [facility] Creatinine 0.62 0.50 - 1.10 mg/dL 03/06/2025 3:34 PM [facility] eGFR 95 >=60 mL/min/1. 73m2 03/06/2025 3:34 PM [facility] Comment:Calculation based on the Chronic Kidney Disease Epidemiology Collaboration (CKD-EPI) equation refit without adjustment for race. BUN/Creatinine Ratio 16.1 03/06/2025 3:34 PM [facility] Calcium 9.1 8.5 - 10.5 mg/dL 03/06/2025 3:34 PM [facility] Blood Venous blood specimen / Unknown Venipuncture / Unknown 03/06/2025 2:25 PM EST 03/06/2025 2:49 PM EST us Nellie Walsh VOCATIONAL GUIDANCE COUNSELOR LAB BLOOD ORDERABLES Final Resu lt [facility] [address] [place] [address], * (ABNORMAL) Hemoglobin A1c (03/02/2025 10:47 AM EST) Hemoglobin A1C 11.1(H) <6.5 % LAB CHEMISTRY METHOD 03/03/2025 1:02 PM [facility] Mean Bld Glu Estim. 272 mg/dL LAB CHEMISTRY METHOD 03/03/2025 1:02 PM EST [facility] Blood Venous blood specimen / Unknown Venipuncture / Unknown 03/02/2025 10:47 AM EST 03/02/2025 10:47 AM EST us Rachel FLORES LAB BLOOD ORDERABLES Final Result [facility] [address] [place] [address], [place] [phone] * POC glucose manually resulted (01/12/2025 10:36 AM EDT) Glucose POC 218 mg/dL Blood Capillary blood specimen / Unknown 01/12/2025 10:36 AM EDT us Rachel FLORES POINT OF CARE TEST ENTER/ED IT ORDERABLES Final Result * External Diabetic Retina Eye Exam Report (10/24/2024) Anatomical Region Laterality Modality Ultrasound us Provider [facility] US PROCEDURES Final Result * BD Bone Density DXA Axial Skeleton (10/10/2024 2:42 PM EDT) Anatomical Region Laterality Modality Wrist, Hip, L-spine Bone Densito metry 10/11/2024 8:18 AM EDT Impressions 10/11/2024 8:19 AM EDT 1. Osteoporosis. 2. FRAX analysis yields a 10-year probability of major osteoporotic fracture of 8.3% and a 10-year probability of hip fracture of 2.6%. Code 84897 -------- FINAL REPORT -------- Dictated By: Lefty Oliva Dictated Date: 10/11/2024 08:18 ET Assigned Physician: Lefty Oliva Reviewed and Electronically Signed By: Lefty Oliva Signed Date: 10/11/2024 08:19 ET Workstation ID: [id number] Transcribed By: Self Edit Transcribed Date: 10/11/2024 08:18 ET Narrative 10/11/2024 8:19 AM EDT HISTORY: The patient is a 74-year-old postmenopausal female with clinical concern for metabolic bone disease. FINDINGS: Dual energy x-ray absorptiometry of the lumbar spine and femurs is performed. The mean bone mineral density at L1-L4 is 0.995 gm/cm2 which is 84% of that of young normals and 88% of that of age matched controls. This yields a T-score of -1.5 and a Z-score of -1.2 which is diagnostic of osteopenia. The mean bone mineral density of the femurs bilaterally is 0.711 gm/cm2 which is 71% of that of young normals and 72% of that of age matched controls. This yields a T-score of -2.4 and a Z-score of -2.2 which is diagnostic of osteopenia. However, the T-score of the right femoral neck is -2.9 and that of the left femoral neck is -2.7 which is diagnostic of osteoporosis. Procedure Note Lefty Oliva MD - 10/11/2024 HISTORY: The patient is a 74-year-old postmenopausal female with clinicalconcern for metabolic bone disease. FINDINGS: Dual energy x-ray absorptiometry of the lumbar spine and femursis performed. The mean bone mineral density at L1-L4 is 0.995 gm/cm2 whichis 84% of that of young normals and 88% of that of age matched controls.This yields a T-score of -1.5 and a Z-score of -1.2 which is diagnostic ofosteopenia. The mean bone mineral density of the femurs bilaterally is 0.711 gm/xa7mafnm is 71% of that of young normals and 72% of that of age matchedcontrols. This yields a T-score of -2.4 and a Z-score of -2.2 which isdiagnostic of osteopenia. However, the T-score of the right femoral neckis -2.9 and that of the left femoral neck is - 2.7 which is diagnostic ofosteoporosis. IMPRESSION: 1. Osteoporosis. 2. FRAX analysis yields a 10-year probability of major osteoporoticfracture of 8.3% and a 10-year probability of hip fracture of 2.6%. Code 60196 -------- FINAL REPORT -------- Dictated By: Lefty Oliva Dictated Date: 10/11/2024 08:18 ET Assigned Physician: Lefty Oliva Reviewed and Electronically Signed By: Lefty Oliva Signed Date: 10/11/2024 08:19 ET Workstation ID: [id number] Transcribed By: Self Edit Transcribed Date: 10/11/2024 08:18 ET us Boni Castaneda MD IM DXA PROCEDURES Final Result * Microalbumin creatinine urine ratio (08/31/2024 9:20 AM EDT) Creatinine, Urine 96.0 mg/dL LAB CHEMISTRY METHOD 08/31/2024 3:26 PM EDT [facility] Microalb, Ur 13.8 0.0 - 29.0 mg/L LAB CHEMISTRY METHOD 08/31/2024 3:26 PM EDT [facility] Microalb/Creat Ratio 14 <30 mg/g creat LAB CHEMISTRY METHOD 08/31/2024 3:26 PM EDT [facility] Urine Urine specimen obtained by clean catch procedure / Unknown Non-blood Collection / Unknown 08/31/2024 9:20 AM EDT 08/31/2024 9:20 AM EDT us Michelle FLORES LAB URINE ORDERABLES Final Resul t [facility] [address] [place] [address], [place] [phone] * (ABNORMAL) Lipid panel with reflex to direct LDL (03/07/2024 11:00 AM EST) Cholesterol 170 0 - 200 mg/dL LAB CHEMISTRY METHOD 03/07/2024 5:42 PM EST [facility] Triglycerides 49 0 - 150 mg/dL LAB CHEMISTRY METHOD 03/07/2024 5:42 PM EST [facility] HDL 58 >=40 mg/dL LAB CHEMISTRY METHOD 03/07/2024 5:42 PM EST [facility] LDL Calculated 102(H) 0 - 100 mg/dL LAB CHEMISTRY METHOD 03/07/2024 5:42 PM [facility] VLDL Cholesterol Vance 9.8 mg/dL LAB CHEMISTRY METHOD 03/07/2024 5:42 PM EST [facility] Non HDL Chol. (LDL+VLDL) 112 <145 mg/dL LAB CHEMISTRY METHOD 03/07/2024 5:42 PM [facility] Chol/HDL Ratio 2.9 0.0 - 4.4 LAB CHEMISTRY METHOD 03/07/2024 5:42 PM [facility] Blood Venous blood specimen / Unknown Venipuncture / Unknown 03/07/2024 11:00 AM EST 03/07/2024 11:00 AM EST Anh Rivera VOCATIONAL GUIDANCE COUNSELOR LAB BLOOD ORDERABLES Final Resul t [facility] [address] [place] [address], * Falls Risk Assessment (07/22/2023) Pathologist [facility] [place] Risk Assessment Abstracted Historical Provider HEALTH MAINTENANCE Final Result * Depression Screening (07/22/2023) Pathologist [facility] Depression Screening Abstracted [facility] Provider HEALTH MAINTENANCE Final Result * Colonoscopy (06/07/2021) Pathologist [facility] Colonoscopy normal Anatomical Region Laterality Modality Other [facility] Provider HEALTH MAINTENANCE Final Result * Hepatitis C Screening (02/05/2021) Pathologist [facility] Hepatitis C Screening negative [facility] Anne CID HEALTH MAINTENANCE Final Result from Last 3 Months or Most Recently Relevant to Health Maintenance Additional Health Concerns Infection Onset Date 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
== END 2025-03-22 10:09 | disposition home or self-care (01) ==
LOC: HO.PMC 09:35
PROVIDERS: PCP Internal Medicine; Visit Provider Internal Medicine
DX: E11.40 Type 2 diabetes mellitus with diabetic neuropathy, unspecified (principal)
CPT/HCPCS: 99214

== ENCOUNTER → 2025-03-22 09:34 | Outpatient (BNVA) | payer MEDICARE, MEDICAID, SELFPAY | PROVIDERS: PCP Internal Medicine; Visit Provider Internal Medicine | DX: E11.40 Type 2 diabetes mellitus with diabetic neuropathy, unspecified (principal); Z79.4 Long term (current) use of insulin | CPT/HCPCS: 99212 ==